=== PATIENT | female | born 1960 | race Caucasian/White ===

== ENCOUNTER → 2023-12-11 07:52 | Day surgery (SDC) | payer OTHER, SELFPAY ==
[2023-12-11 11:56] LABS: Glucose - Point of Care 194 mg/dl (70-99)
== END ==
LOC: GI 07:52
PROVIDERS: ATTENDING PHYSICIAN Internal Medicine Gastroenterology
DX: Z12.11 Encounter for screening for malignant neoplasm of colon (principal); D12.2 Benign neoplasm of ascending colon; D12.4 Benign neoplasm of descending colon; D12.5 Benign neoplasm of sigmoid colon
CPT/HCPCS: 45385; 88305; 82962

== ENCOUNTER → 2024-01-09 07:38 | Outpatient (REF) | payer OTHER, SELFPAY | LOC: DHCBC/DCA 07:38 | PROVIDERS: ATTENDING PHYSICIAN Internal Medicine; FAMILY PHYSICIAN Family Medicine | DX: E78.00 Pure hypercholesterolemia, unspecified (principal); E11.59 Type 2 diabetes mellitus with other circulatory complications; R07.9 Chest pain, unspecified; R06.09 Other forms of dyspnea | CPT/HCPCS: 78452; 93017; A9500; J2785 ==

== ENCOUNTER → 2024-01-25 09:15 | Outpatient (REF) | payer OTHER, SELFPAY | LOC: RCS 09:15 | PROVIDERS: ATTENDING PHYSICIAN Internal Medicine; FAMILY PHYSICIAN Family Medicine | DX: C50.511 Malignant neoplasm of lower-outer quadrant of right female breast (principal); E78.00 Pure hypercholesterolemia, unspecified; E11.59 Type 2 diabetes mellitus with other circulatory complications | CPT/HCPCS: 93306; 93356 ==

== ENCOUNTER 2024-01-29 07:15 | Day surgery (SDC) | payer OTHER, SELFPAY ==
[2024-01-26 10:24] VITALS: BMI 31.1
[2024-01-29 08:17] LABS: Glucose - Point of Care 190 mg/dl (70-99)
== END 2024-01-29 09:50 | disposition home or self-care (01) ==
LOC: CATH 07:15
PROVIDERS: ATTENDING PHYSICIAN Internal Medicine; FAMILY PHYSICIAN Family Medicine
DX: I08.1 Rheumatic disorders of both mitral and tricuspid valves (principal); R07.9 Chest pain, unspecified; R06.09 Other forms of dyspnea; I10 Essential (primary) hypertension; E78.5 Hyperlipidemia, unspecified; E11.9 Type 2 diabetes mellitus without complications; Z85.3 Personal history of malignant neoplasm of breast; F17.210 Nicotine dependence, cigarettes, uncomplicated; Z79.4 Long term (current) use of insulin; Z79.84 Long term (current) use of oral hypoglycemic drugs
CPT/HCPCS: 93312; 93320; 93325; 82962; 93005

== ENCOUNTER → 2024-03-04 08:29 | Outpatient (REF) | payer OTHER, SELFPAY | LOC: PAVMRI 08:29 | PROVIDERS: ATTENDING PHYSICIAN Internal Medicine; FAMILY PHYSICIAN Family Medicine | DX: I51.89 Other ill-defined heart diseases (principal); Z17.0 Estrogen receptor positive status [ER+]; C50.911 Malignant neoplasm of unspecified site of right female breast | CPT/HCPCS: 75561; 75565; A9585 ==

== ENCOUNTER 2024-03-25 06:49 | Day surgery (SDC) | payer OTHER, SELFPAY ==
[2024-03-25 07:44] LABS: Glucose - Point of Care 376 mg/dl (70-99)
[2024-03-25] MEDS: NOVOLOG vial 4 UNITS SC (08:00)
[2024-03-25 09:18] LABS: Glucose - Point of Care 313 mg/dl (70-99)
== END 2024-03-25 09:30 | disposition home or self-care (01) ==
LOC: CATH 06:49
PROVIDERS: ATTENDING PHYSICIAN Internal Medicine; FAMILY PHYSICIAN Family Medicine
DX: I08.1 Rheumatic disorders of both mitral and tricuspid valves (principal); I10 Essential (primary) hypertension; E78.00 Pure hypercholesterolemia, unspecified; E10.8 Type 1 diabetes mellitus with unspecified complications; Z85.3 Personal history of malignant neoplasm of breast; F17.210 Nicotine dependence, cigarettes, uncomplicated; Z79.84 Long term (current) use of oral hypoglycemic drugs; Z79.4 Long term (current) use of insulin
CPT/HCPCS: 93312; 93320; 93325; 82962

== ENCOUNTER → 2024-05-08 06:33 | Outpatient (REF) | payer OTHER, SELFPAY | LOC: WDC 06:33 | PROVIDERS: ATTENDING PHYSICIAN Internal Medicine Hematology & Oncology; FAMILY PHYSICIAN Family Medicine | DX: Z12.31 Encounter for screening mammogram for malignant neoplasm of breast (principal) | CPT/HCPCS: 77063; 77067; 93312; 93320; 93325 ==

== ENCOUNTER 2024-05-16 11:15 | Emergency (ER) | payer OTHER, SELFPAY ==
[2024-05-16 11:21] VITALS: BP 135/68
[2024-05-16 11:36] LABS: % Eosinophils 3.6 % (0-6); % Immature Granulocytes 0.3 % (0-0.5); % Lymphocytes 24.9 % (20.5-51.1); % Monocytes 9.3 % (1.7-9.3); % Neutrophils 60.9 % (42.2-75.2); Absolute Basophils 0.1 10^3/uL (0-0.2); Absolute Eosinophils 0.2 10^3/uL (0-0.7); Absolute Lymphocytes 1.7 10^3/uL (1.2-3.4); Absolute Monocytes 0.6 10^3/uL (0.1-0.6); Absolute Neutrophils 4.1 10^3/uL (1.4-6.5); Hematocrit 36.8 % (37.0-47.0); Hemoglobin 13.1 g/dL (12.0-16.0); Mean Corp Hgb Conc. 35.6 g/dL (33.0-37.0); Mean Corpuscular Hgb 33.5 pg (27.0-31.0); Mean Corpuscular Volume 94.1 fL (81.0-99.0); Mean Platelet Volume 9.3 fL (7.4-10.4); Nucleated Red Blood Cells % 0 %; Platelet Count 279 10^3/uL (130-400); Red Blood Cell Count 3.91 10^6/uL (4.20-5.40); Red Cell Dist. Width 15.5 % (11.5-14.5); White Blood Cell Count 6.8 10^3/uL (4.8-10.8)
[2024-05-16 11:49] LABS: ALT (SGPT) 20 U/L (0-35); AST (SGOT) 21 U/L (14-36); Albumin 4.1 g/dl (3.5-5.0); Alkaline Phosphatase 64 U/L (38-126); Blood Urea Nitrogen 16 mg/dl (7-17); Calcium 9.3 mg/dl (8.4-10.2); Carbon Dioxide 21 mmol/L (22-30); Chloride 106 mmol/L (98-107); Glucose 200 mg/dl (70-99); Potassium 3.9 mmol/L (3.5-5.1); Sodium 135 mmol/L (135-145); Total Bilirubin 0.5 mg/dl (0.2-1.3); Total Protein 6.6 g/dl (6.3-8.2); eGFR > 60.00
--- NOTE | 2024-05-16 11:59 | ED.GENMED ---
History of Present Illness
<Sara Hunt PA-C - Last Filed: 05/16/24 19:15>
General
Chief Complaint: Chest Pain
Source: patient
Exam Limitations: none
Time Seen by Provider: 05/16/24 11:59
Nursing documentation reviewed up to this point in time: agreed with
History of Present Illness
History of Present Illness:
63 y/o F with htn, hld, R breast CA, IDDM, lupus
h/o R atrial thrombus recently diagnosed on cardiac MRI after abnormal echo
here with chest pain in the center and upper back that she has felt constantly fo r2 days, radiates into both arms
exertion does not make it worse
slightly worse with deep breathing but no SOB
gave her a nitro this morning , he isn't sure why
it didn't help
pt has not had any leg swelling, syncope, fever, cough, vomiting,, abdominal pain, weakness
Past History
<John Richards, - Last Filed: >
Past History
ED Past Medical History: Cancer, Hypercholesterolemia, IDDM and Other
ED Past Surgical History: Gynecological (Partial hysterectomy) and Orthopedic (Cervical spine fusion ); Negative Cardiac
Social History
Tobacco: Smoker
Alcohol: Occasional
Drug: None
Personal:
Living: with family
Employment: Employed
Family History
Family History: Hypertension
Review of Systems
<Sara Hunt PA-C - Last Filed: 05/16/24 19:15>
Review of Systems
Allergies reviewed?: Yes
Phy Exam
<Sara Hunt PA-C - Last Filed: 05/16/24 19:15>
Physical Exam
Physical Exam:
GENERAL: Alert , in no apparent distress
EYE: pupils equal and reactive
NECK: Supple
ENT: o/p clr, mmm.
CARDIAC: Regular rate and rhythm .
right mastectomy
LUNGS: Clear breath sounds bilaterally, no acute respiratory distress, no wheezes/rales/rhonchi
ABDOMEN: Soft, without focal tenderness, no r/g, no cvat, normal bowel sounds
neg georges's
NEUROLOGICAL: Alert and oriented, no focal neuro deficits
SKIN: Warm and dry, skin intact.
MUSCULOSKELETAL: No edema, well perfused. neg ilir's sign
PSYCH: Normal and appropriate interaction.
Scores
<Sara Hunt PA-C - Last Filed: 05/16/24 19:15>
Heart Score for Chest Pain Patients
STEMI patient?: No
History: Moderately Suspicious
ECG: Normal
Age: >45 - <65 years
Risk Factors: >/= 3 Risk Factors or History of CAD
Troponin: </= Normal Limit
Heart Score for Chest Pain Patients: 4
Heart Score Risk: 20.3% MACE over next 6 weeks
Course
<Sara Hunt PA-C - Last Filed: 05/16/24 19:15>
Orders/Labs/Results
Orders:
Orders
05/16/24 11:17
EKG [Electrocardiogram (*1)] Urgent
Reason for Study: Chest Pain
05/16/24 11:18
EKG- Treatment ONCE
05/16/24 11:25
Cardiac Monitoring- Treatment ONCE
IV Insert/Care/Rem.- Treatment PRN
O2 Therapy [RESP] Urgent
Titrate/Wean O2 to maintain O2 sat greater than (%): 90
Special Instructions: Maintain sats >/=90%
Pulse Ox/spot Check [RESP] Urgent
Quantity: 1
Special Instructions: ON ROOM AIR
05/16/24 11:29
Complete Blood Count/With Diff Urgent
Comprehensive Metabolic Panel Urgent
Lipase Urgent
Comment: ADD
Troponin I Urgent
05/16/24 13:00
CT Chest/abd/pelvis Angio W/wo Urgent
Comment: R atrial thrombus on cardiac mri
Reason For Exam: chest, upper back pain radiating to arms
05/16/24 13:04
Acetaminophen [Tylenol] 650 mg PO NOW STA
05/16/24 13:11
Add On- LAB Urgent
Tests Added?: lipase
05/16/24 14:36
Electrocardiogram (*1) Urgent
Reason for Study: Chest Pain
EKG- Treatment ONCE
05/16/24 15:42
Troponin I Urgent
Abnormal Lab Results
05/16/24
11:29
RBC 3.91 L 10^6/uL
(4.20-5.40)
Hct 36.8 L %
(37.0-47.0)
MCH 33.5 H pg
(27.0-31.0)
RDW 15.5 H %
(11.5-14.5)
Carbon Dioxide 21 L mmol/L
(22-30)
Glucose 200 H mg/dl
(70-99)
05/16/24 11:29
05/16/24 11:29
Vital Signs
Initial and Last Documented VS:
Initial Vital Signs
Temp Pulse Resp BP Pulse Ox
98 F 85 18 135/68 96
05/16/24 11:21 05/16/24 11:21 05/16/24 11:21 05/16/24 11:21 05/16/24 11:21
Last Documented Vital Signs
Temp Pulse Resp BP Pulse Ox
98 F 73 21 132/63 96
05/16/24 11:21 05/16/24 16:00 05/16/24 16:00 05/16/24 13:25 05/16/24 16:00
<John Richards, DO - Last Filed: >
Orders/Labs/Results
Orders:
Orders
05/16/24 11:17
EKG [Electrocardiogram (*1)] Urgent
Reason for Study: Chest Pain
05/16/24 11:18
EKG- Treatment ONCE
05/16/24 11:25
Cardiac Monitoring- Treatment ONCE
IV Insert/Care/Rem.- Treatment PRN
O2 Therapy [RESP] Urgent
Titrate/Wean O2 to maintain O2 sat greater than (%): 90
Special Instructions: Maintain sats >/=90%
Pulse Ox/spot Check [RESP] Urgent
Quantity: 1
Special Instructions: ON ROOM AIR
05/16/24 11:29
Complete Blood Count/With Diff Urgent
Comprehensive Metabolic Panel Urgent
Lipase Urgent
Comment: ADD
Troponin I Urgent
05/16/24 13:00
CT Chest/abd/pelvis Angio W/wo Urgent
Comment: R atrial thrombus on cardiac mri
Reason For Exam: chest, upper back pain radiating to arms
05/16/24 13:04
Acetaminophen [Tylenol] 650 mg PO NOW STA
05/16/24 13:11
Add On- LAB Urgent
Tests Added?: lipase
05/16/24 14:36
Electrocardiogram (*1) Urgent
Reason for Study: Chest Pain
EKG- Treatment ONCE
05/16/24 15:42
Troponin I Urgent
Abnormal Lab Results
05/16/24
11:29
RBC 3.91 L 10^6/uL
(4.20-5.40)
Hct 36.8 L %
(37.0-47.0)
MCH 33.5 H pg
(27.0-31.0)
RDW 15.5 H %
(11.5-14.5)
Carbon Dioxide 21 L mmol/L
(22-30)
Glucose 200 H mg/dl
(70-99)
05/16/24 11:29
05/16/24 11:29
Vital Signs
Initial and Last Documented VS:
Initial Vital Signs
Temp Pulse Resp BP Pulse Ox
98 F 85 18 135/68 96
05/16/24 11:21 05/16/24 11:21 05/16/24 11:21 05/16/24 11:21 05/16/24 11:21
Last Documented Vital Signs
Temp Pulse Resp BP Pulse Ox
98 F 73 21 132/63 96
05/16/24 11:21 05/16/24 16:00 05/16/24 16:00 05/16/24 13:25 05/16/24 16:00
<Sara Hunt PA-C - Last Filed: 05/16/24 19:15>
MDM/Problems Addressed
MDM/Problems Addressed:
63 y/o F
h/o breast ca s/p mastectomy and chemo but d/c treatment
htn, hld, iddm
in january had abnormal echo, YUVAL showing a R atrial mass
she had cardiac MRI in february confirming this masslike lesion in the lateral and inferior wall of the R atrium which was favored to be a thrombus but could also be metastatic, though less likely;
she was empirically started on eliquis which she has been taking
2 days ago developed constant cp to back and down both arms; she has some pleuritic component, no cough, now eakness
unclear why it took her 2 days to come in; her vitals are normal, she appears comfortable and her exam is unremarkable; her ekg is normal and 1st trop neg; was pending CTA OF C/A/P
D/W DR. pedroza and dr. kirkland
they felt that since pt's lesion is stable, she is anticoagulated, and with 2 neg trops did not feel this was cardiac in nature
new finding of multiple pulm lesions concerning for mets
pt will call her oncologist for further w/u
already anticoagulated
d/c home
<Sara Hunt PA-C - Last Filed: 05/16/24 19:15>
*Critical Care Note
Total Time (30-74mins, 75-104mins- exclusive of procedures): Not Applicable
ED Attending Note
<John Richards DO - Last Filed: >
-
Portions of this chart may have been created with voice recognition software.� Occasional wrong word or��sound alike� substitutions may have occurred due to the inherent limitations of voice recognition software.
Discharge Plan
Departure
Patient Disposition: Home (Routine Discharge)
Date of Disposition: 05/16/24
Time of Disposition: 16:24
Patient with high blood pressure during this ER visit?: No
Condition: Fair
Covid-19: Not Applicable
Discharge Problem:
Chest pain, Multiple pulmonary nodules
Instructions: Pulmonary nodule, Chest Pain CBC Follow Up
Prescriptions:
No Action
methotrexate sodium 2.5 MG tablet
10 mg PO TUWE@1800
metformin 1,000 MG tablet
1,000 mg PO BID@0800,1700
folic acid 1 MG tablet
3 mg PO DAILY
insulin lispro [Humalog KwikPen Insulin] 100 UNIT/ML insulin pen
0 units SC MEALS
Patient Comments:
sliding scale
hydroxychloroquine 200 mg Tablet
400 mg PO BID
insulin glargine [Lantus Solostar U-100 Insulin] 100 unit/mL (3 mL) Insulin Pen
50 unit SC HS
sucralfate 1 gram Tablet
1 g PO TID
pantoprazole 40 mg Tablet,Delayed Release (Dr/Ec)
40 mg PO DAILY
pregabalin 100 mg Capsule
100 mg PO TID
mecobalamin (vitamin B12) [B12 Active] 1,000 mcg Tablet,Chewable
1,000 mcg PO DAILY
Referrals:
Abraham Ackerman MD [Family Provider] -
Arnel Dyer MD [Active] - Follow up in 5-7 days
Activity Restrictions/Additional Instructions:
Your CAT scan shows that you have multiple pulmonary nodules
You need to call Dr. Dyer, you will need more testing for this. Please remember to continue your Eliquis as prescribed, do not miss any doses of this.
Return for any worsening of your chest pain, passing out, vomiting, weakness or any concerns. Also follow-up with Dr. Kirkland.
Interventions
Interventions:
*Risk Screen - Suicide Last Done: 05/16/24 11:21
*General Assessment Last Done: 05/16/24 11:21
*Neglect/Abuse Screening Last Done: 05/16/24 11:21
*ED COVID-19 Vaccine History Last Done: 05/16/24 13:18
*Nursing Disposition Last Done: 05/16/24 16:40
ED- Cardiac Assessment Last Done: 05/16/24 13:18
Discharge Date and Time
Discharge Date/Time: 05/16/24 16:41
Print Language: SENEGALESE
[2024-05-16 12:02] LABS: Troponin I < 0.012 ng/ml
[2024-05-16] MEDS: TYLENOL 650 MG PO (13:20)
[2024-05-16 13:21] VITALS: BP 132/63
[2024-05-16 13:25] VITALS: BP 132/63
[2024-05-16 14:21] LABS: Lipase 128 U/L (23-300)
[2024-05-16 16:14] LABS: Troponin I < 0.012 ng/ml
== END 2024-05-16 16:41 | disposition home or self-care (01) ==
LOC: EMR 11:15
PROVIDERS: Emergency Medicine; Physician Assistant; EMERGENCY PHYSICIAN Emergency Medicine; FAMILY PHYSICIAN Family Medicine
DX: R91.8 Other nonspecific abnormal finding of lung field (principal); R07.9 Chest pain, unspecified; M79.602 Pain in left arm; M79.601 Pain in right arm; I10 Essential (primary) hypertension; E11.9 Type 2 diabetes mellitus without complications; E78.00 Pure hypercholesterolemia, unspecified; M32.9 Systemic lupus erythematosus, unspecified; I51.3 Intracardiac thrombosis, not elsewhere classified; F17.200 Nicotine dependence, unspecified, uncomplicated; Z79.4 Long term (current) use of insulin; Z85.3 Personal history of malignant neoplasm of breast; Z92.21 Personal history of antineoplastic chemotherapy; M43.22 Fusion of spine, cervical region; Z90.11 Acquired absence of right breast and nipple; Z88.5 Allergy status to narcotic agent; Z88.8 Allergy status to other drugs, medicaments and biological substances
CPT/HCPCS: 99285; 71275; 74174; 80053; 83690; 84484; 85025; 93005; Q9967

== ENCOUNTER → 2024-05-22 12:29 | Outpatient (REF) | payer OTHER, SELFPAY | LOC: HWRAD 12:29 | PROVIDERS: ATTENDING PHYSICIAN Family Medicine | DX: R11.10 Vomiting, unspecified (principal); R91.1 Solitary pulmonary nodule; C50.911 Malignant neoplasm of unspecified site of right female breast | CPT/HCPCS: 70470; Q9967 ==

== ENCOUNTER → 2024-06-03 07:56 | Outpatient (REF) | payer OTHER, SELFPAY | LOC: PET 07:56 | PROVIDERS: ATTENDING PHYSICIAN Family Medicine | DX: C50.511 Malignant neoplasm of lower-outer quadrant of right female breast (principal); R91.1 Solitary pulmonary nodule | CPT/HCPCS: 78815; A9552 ==

== ENCOUNTER → 2024-07-02 07:56 | Outpatient (REF) | payer OTHER, SELFPAY | LOC: HWRAD 07:56 | PROVIDERS: ATTENDING PHYSICIAN Internal Medicine Critical Care Medicine; FAMILY PHYSICIAN Family Medicine | DX: R91.8 Other nonspecific abnormal finding of lung field (principal) | CPT/HCPCS: 71250 ==

== ENCOUNTER 2024-07-10 06:13 | Day surgery (SDC) | payer OTHER, SELFPAY ==
[2024-07-02 07:53] LABS: Hematocrit 37.8 % (37.0-47.0); Hemoglobin 13.1 g/dL (12.0-16.0); Mean Corp Hgb Conc. 34.7 g/dL (33.0-37.0); Mean Corpuscular Hgb 33.2 pg (27.0-31.0); Mean Corpuscular Volume 95.9 fL (81.0-99.0); Mean Platelet Volume 9.7 fL (7.4-10.4); Platelet Count 299 10^3/uL (130-400); Red Blood Cell Count 3.94 10^6/uL (4.20-5.40); White Blood Cell Count 6.3 10^3/uL (4.8-10.8)
[2024-07-02 07:56] LABS: INR 1.08; PT 13.9 Sec (11.4-14.6)
[2024-07-02 07:57] LABS: APTT 44.3 Sec (23.4-35.0)
[2024-07-02 08:14] LABS: Blood Urea Nitrogen 20 mg/dl (7-17); Calcium 10.1 mg/dl (8.4-10.2); Carbon Dioxide 26 mmol/L (22-30); Chloride 100 mmol/L (98-107); Glucose 148 mg/dl (70-99); Potassium 4.3 mmol/L (3.5-5.1); Sodium 142 mmol/L (135-145); eGFR > 60.00
[2024-07-02 10:05] VITALS: BMI 28.1
--- NOTE | 2024-07-08 12:27 | PTCARENOTE ---
Patients 07/02 PTT 44.3- Emailed Cynthia Cohen
[2024-07-10] VITALS (7 sets, daily range): BP systolic 101–124; BP diastolic 58–72; BMI 28.1
[2024-07-10 09:12] LABS: Glucose - Point of Care 107 mg/dl (70-99)
[2024-07-10 11:55] LABS: Glucose - Point of Care 91 mg/dl (70-99)
[2024-07-10] MEDS: TESSALON PERLES 200 MG PO (12:32)
[2024-07-10] MEDS: ROBITUSSIN DM 10 ML PO (12:32)
== END 2024-07-10 13:44 | disposition home or self-care (01) ==
LOC: GI 06:13
PROVIDERS: ATTENDING PHYSICIAN Internal Medicine Critical Care Medicine; FAMILY PHYSICIAN Family Medicine; OTHER PHYSICIAN Internal Medicine; OTHER PHYSICIAN Internal Medicine Hematology & Oncology
DX: C34.31 Malignant neoplasm of lower lobe, right bronchus or lung (principal); R91.8 Other nonspecific abnormal finding of lung field; R05.3 Chronic cough; Z85.3 Personal history of malignant neoplasm of breast
CPT/HCPCS: 31629; 31623; 43238; 31627; 31628; 31624; 31654; 88172; 88173; 88305; 36415; 71045; 76000; 80048; 81459; 82962; 85027; 85610; 85730; 87070; 87102; 87116; 87205; 88112; 88333; 88334; 88341; 88342; 94640; C1887

== ENCOUNTER → 2024-08-06 06:46 | Outpatient (REF) | payer OTHER, SELFPAY ==
[2024-08-06] VITALS (8 sets, daily range): BP systolic 60–129; BP diastolic 57–73
[2024-08-06 07:32] LABS: Glucose - Point of Care 101 mg/dl (70-99)
[2024-08-06] MEDS: ANCEF 10 IV (08:19)
[2024-08-06 09:40] LABS: Glucose - Point of Care 88 mg/dl (70-99)
== END ==
LOC: RADI 06:46
PROVIDERS: ATTENDING PHYSICIAN Internal Medicine Hematology & Oncology; FAMILY PHYSICIAN Family Medicine
DX: C50.511 Malignant neoplasm of lower-outer quadrant of right female breast (principal)
CPT/HCPCS: 36561; 76937; 77001; 82962; 99152; 99153; C1788

== ENCOUNTER 2024-09-09 19:29 | Inpatient (IN) | payer OTHER, SELFPAY ==
[2024-09-09 16:00] VITALS: BP 135/68
--- NOTE | 2024-09-09 16:06 | ED.GENMED ---
ED Provider Triage
<Trevin Sawyer PA-C - Last Filed: 09/09/24 16:12>
-
Patient seen by provider in Triage?: Seen in Triage
Attestation: A medical screening examination has been initiated by a qualified medical provider. Based on the assessment performed at this time, it has been determined that an emergent medical condition may exist and the patient has been informed
that further medical evaluation and possible additional diagnostic testing may be needed.
HPI: 63-year-old female currently being treated for cancer over at [facility] presenting to the ER for evaluation of chest pain, muscle spasms that extend from her feet all the way up through her head and generally feeling unwell. Last chemo
and reports she also got an injection of what she believed to be heparin this past Monday. Patient unable to tell me as to why they gave her heparin however. No fevers. Chronically ill-appearing but in no acute distress. Labs ordered. Patient
otherwise stable.
GENERAL: Alert , in no apparent distress
EYE: No visual abnormalities.
NECK: Trachea midline
ENT: No visible abnormalities.
LUNGS: No acute respiratory distress
NEUROLOGICAL: Alert and oriented
SKIN: Skin intact. No visible changes.
MUSCULOSKELETAL: Moving extremities normally
PSYCH: Normal and appropriate interaction.
This is a medical evaluation conducted in person to initiate diagnostic evaluation and provide initial therapeutics. Please see further documentation by the treating clinician.
History of Present Illness
<Trevin Sawyer PA-C - Last Filed: 09/09/24 16:12>
General
Chief Complaint: Chest Pain
Time Seen by Provider: 09/09/24 17:17
<Olesya Alcantara MD - Last Filed: 09/09/24 19:43>
General
Source: patient
Exam Limitations: none
Nursing documentation reviewed up to this point in time: agreed with
History of Present Illness
History of Present Illness:
The patient is a pleasant 63-year-old female with a past medical history of recurrent breast cancer with mets to the lungs. Patient arrives with complaints of diffuse muscle cramping which she states is located in her bilateral arms, legs, back,
and in her chest. Patient denies cough and fever. She reports she recently had chemotherapy 5 days ago. She reports that about 3 days ago she had a large amount of watery diarrhea for 2 days straight.
Past History
<Trevin Sawyer PA-C - Last Filed: 09/09/24 16:12>
Past History
ED Past Medical History: Cancer, Hypercholesterolemia, IDDM and Other
ED Past Surgical History: Gynecological (Partial hysterectomy) and Orthopedic (Cervical spine fusion ); Negative Cardiac
Social History
Tobacco: Smoker
Alcohol: Occasional
Drug: None
Personal:
Living: with family
Employment: Employed
Family History
Family History: Hypertension
Review of Systems
<Olesya Alcantara MD - Last Filed: 09/09/24 19:43>
Review of Systems
Allergies reviewed?: Yes
All Other Systems: ROS reviewed and negative except as documented in HPI and ROS
Constitutional: Reports fatigue
EENT: Reports no symptoms
Respiratory: Reports no symptoms
Cardiac: Reports chest pain
ABD/GI: Reports no symptoms
: Reports no symptoms
Musculoskeletal: Reports muscle pain
Skin: Reports no symptoms
Neurological: Reports no symptoms
Endocrine: Reports no symptoms
Hematologic/Lymphatic: Reports no symptoms
Psychiatric: Reports no symptoms
Phy Exam
<Olesya Alcantara MD - Last Filed: 09/09/24 19:43>
Physical Exam
Physical Exam:
Physical Exam
General: no apparent distress, not acutely ill
Neck: supple. no meningeal signs. normal psoterior pharynx
Heart: s1/s2 regular rate and rhythm, no murmur. equal radial pulses.
Lungs: no acute respiratory distress. clear bilaterally
Abdomen: normal bowel sounds. not tender. no CVAT
Neuro: alert and oriented. no focal neurological deficits
Skin: no rash
Psychiatric: well kept. interactive and cooperative
Extremities: no edema. no calf tenderness. negative homans. good distal pulses
Scores
<Olesya Alcantara MD - Last Filed: 09/09/24 19:43>
Heart Score for Chest Pain Patients
STEMI patient?: Not applicable
Course
<Trevin Sawyer PA-C - Last Filed: 09/09/24 16:12>
Orders/Labs/Results
Orders:
Orders
09/09/24 16:00
Electrocardiogram (*1) Urgent
Reason for Study: Chest Pain
Electrocardiogram (*1) Urgent
Reason for Study: Chest Pain
EKG- Treatment ONCE
EKG- Treatment ONCE
09/09/24 16:13
CPK [Creatine Phosphokinase] Urgent
Complete Blood Count/With Diff Urgent
Comprehensive Metabolic Panel Urgent
Magnesium Urgent
Troponin I Urgent
09/09/24 17:08
Magnesium Sulfate 2 Gram/50 ml [Magnesium Sulfate] 2 gram in 50 ml IV NOW
09/09/24 17:09
Magnesium Sulfate 2 Gram/50 ml [Magnesium Sulfate] 2 gram in 50 ml .ROUTE .STK-MED
09/09/24 18:15
Magnesium Sulfate 2 Gram/50 ml [Magnesium Sulfate] 2 gram in 50 ml IV NOW
09/09/24 18:16
Potassium Chloride [KCl] 40 meq PO NOW STA
09/09/24 18:43
Admit/Transfer Patient As Directed
Co-Sign Provider:
Level of Care: Inpatient admission
Assign to:: Telemetry
Physician / Group: sherman
Diagnosis: hypomagnesemia
Reason for Telemetry: Other
Other Reason for Telemetry: electroylte imbalance
Date to Stop Telemetry: 09/11/24
Time to Stop Telemetry: 11:00
Reason for Hospitalization: hypomagnesemia
Expected length of stay greater than two midnights?: Yes
ELOS- Estimated Length of Stay in days: 3
I certify the patient meets the requirements for IP care: Yes
PRN Pain Medication Management As Directed
May give lesser potent ordered pain med per pt: Yes
preference::
Protocol:: Medication orders for pain may be administered in a
manner that supports deferring to patient preference
when the pt is:
- Requesting an ordered lesser potent pain medication.
Least to most potent pain medications are defined
as: acetaminophen < NSAID < tramadol < opioids
(morphine, oxycodone, hydromorphone).
- Requesting a lesser dose of the same medication IF
ORDERED.
- Requesting a less intrusive route of administration
if both routes are prescribed by the provider (PO <
IV).
09/09/24 18:45
Code Status As Directed
Resuscitation Status: Full Code
09/11/24 11:00
DC Protocol for Telemetry ONCE
Abnormal Lab Results
09/09/24
16:13
RBC 3.21 L 10^6/uL
(4.20-5.40)
Hgb 11.1 L g/dL
(12.0-16.0)
Hct 32.0 L %
(37.0-47.0)
MCV 99.7 H fL
(81.0-99.0)
MCH 34.6 H pg
(27.0-31.0)
RDW 15.8 H %
(11.5-14.5)
Abs Immat Gran (auto) 1.1 H 10^3/uL
(0-0.05)
Absolute Monos (auto) 1.5 H 10^3/uL
(0.1-0.6)
Immature Gran % 10.6 H %
(0-0.5)
Lymphocytes % 16.0 L %
(20.5-51.1)
Monocytes % 15.0 H %
(1.7-9.3)
Sodium 133 L mmol/L
(135-145)
Chloride 96 L mmol/L
(98-107)
Glucose 363 H mg/dl
(70-99)
Magnesium 0.8 L* mg/dl
(1.6-2.3)
09/09/24 16:13
09/09/24 16:13
Vital Signs
Initial and Last Documented VS:
Initial Vital Signs
Temp Pulse Resp BP Pulse Ox
98.5 F 111 19 135/68 95
09/09/24 16:00 09/09/24 16:00 09/09/24 16:00 09/09/24 16:00 09/09/24 16:00
Last Documented Vital Signs
Temp Pulse Resp BP Pulse Ox
98.5 F 94 23 137/56 92
09/09/24 16:00 09/09/24 19:15 09/09/24 19:15 09/09/24 19:00 09/09/24 19:15
<Olesya Alcantara MD - Last Filed: 09/09/24 19:43>
Orders/Labs/Results
Orders:
Orders
09/09/24 16:00
Electrocardiogram (*1) Urgent
Reason for Study: Chest Pain
Electrocardiogram (*1) Urgent
Reason for Study: Chest Pain
EKG- Treatment ONCE
EKG- Treatment ONCE
09/09/24 16:13
CPK [Creatine Phosphokinase] Urgent
Complete Blood Count/With Diff Urgent
Comprehensive Metabolic Panel Urgent
Magnesium Urgent
Troponin I Urgent
09/09/24 17:08
Magnesium Sulfate 2 Gram/50 ml [Magnesium Sulfate] 2 gram in 50 ml IV NOW
09/09/24 17:09
Magnesium Sulfate 2 Gram/50 ml [Magnesium Sulfate] 2 gram in 50 ml .ROUTE .STK-MED
09/09/24 18:15
Magnesium Sulfate 2 Gram/50 ml [Magnesium Sulfate] 2 gram in 50 ml IV NOW
09/09/24 18:16
Potassium Chloride [KCl] 40 meq PO NOW STA
09/09/24 18:43
Admit/Transfer Patient As Directed
Co-Sign Provider:
Level of Care: Inpatient admission
Assign to:: Telemetry
Physician / Group: sherman
Diagnosis: hypomagnesemia
Reason for Telemetry: Other
Other Reason for Telemetry: electroylte imbalance
Date to Stop Telemetry: 09/11/24
Time to Stop Telemetry: 11:00
Reason for Hospitalization: hypomagnesemia
Expected length of stay greater than two midnights?: Yes
ELOS- Estimated Length of Stay in days: 3
I certify the patient meets the requirements for IP care: Yes
PRN Pain Medication Management As Directed
May give lesser potent ordered pain med per pt: Yes
preference::
Protocol:: Medication orders for pain may be administered in a
manner that supports deferring to patient preference
when the pt is:
- Requesting an ordered lesser potent pain medication.
Least to most potent pain medications are defined
as: acetaminophen < NSAID < tramadol < opioids
(morphine, oxycodone, hydromorphone).
- Requesting a lesser dose of the same medication IF
ORDERED.
- Requesting a less intrusive route of administration
if both routes are prescribed by the provider (PO <
IV).
09/09/24 18:45
Code Status As Directed
Resuscitation Status: Full Code
09/11/24 11:00
DC Protocol for Telemetry ONCE
Abnormal Lab Results
09/09/24
16:13
RBC 3.21 L 10^6/uL
(4.20-5.40)
Hgb 11.1 L g/dL
(12.0-16.0)
Hct 32.0 L %
(37.0-47.0)
MCV 99.7 H fL
(81.0-99.0)
MCH 34.6 H pg
(27.0-31.0)
RDW 15.8 H %
(11.5-14.5)
Abs Immat Gran (auto) 1.1 H 10^3/uL
(0-0.05)
Absolute Monos (auto) 1.5 H 10^3/uL
(0.1-0.6)
Immature Gran % 10.6 H %
(0-0.5)
Lymphocytes % 16.0 L %
(20.5-51.1)
Monocytes % 15.0 H %
(1.7-9.3)
Sodium 133 L mmol/L
(135-145)
Chloride 96 L mmol/L
(98-107)
Glucose 363 H mg/dl
(70-99)
Magnesium 0.8 L* mg/dl
(1.6-2.3)
09/09/24 16:13
09/09/24 16:13
Vital Signs
Initial and Last Documented VS:
Initial Vital Signs
Temp Pulse Resp BP Pulse Ox
98.5 F 111 19 135/68 95
09/09/24 16:00 09/09/24 16:00 09/09/24 16:00 09/09/24 16:00 09/09/24 16:00
Last Documented Vital Signs
Temp Pulse Resp BP Pulse Ox
98.5 F 94 23 137/56 92
09/09/24 16:00 09/09/24 19:15 09/09/24 19:15 09/09/24 19:00 09/09/24 19:15
<Olesya Alcantara MD - Last Filed: 09/09/24 19:43>
MDM/Problems Addressed
Differential Diagnosis Includes:
Symptomatic low magnesium, acute renal failure, PE, acute coronary syndrome
MDM/Problems Addressed:
Patient presents with acute muscle spasming and chest pain
Chronic conditions affecting care:
Cancer and chemotherapy can cause diarrhea and electrolyte abnormalities
<Olesya Alcantara MD - Last Filed: 09/09/24 19:43>
*Pulse Oximetry
Patient hypoxic: no
*EKG
Interpreted by ED Provider?: Yes
Interpretation: abnormal
Comparison EKG: no changes
Rate: normal
Rhythm: sinus
Coleman: left axis deviation
Interval: normal interval
QRS Pattern: normal QRS
Ischemia: non-specific ST changes
*Environmental Protection Geologist Interpretation
Rate: normal
Interpretation: normal
Rhythm: sinus
*Critical Care Note
Total Time (30-74mins, 75-104mins- exclusive of procedures): Not Applicable
Data Reviewed
Review of Other/Old Records Reveals: Progress Notes ([facility] progress note and H&P reviewed from 2023 which explained the patient has recurrent breast cancer with mets to the lung)
Source: patient and spouse
<Olesya Alcantara MD - Last Filed: 09/09/24 19:43>
Patient Management
Social determinants of health affecting care: Living situation and Strong social support
Discussion with other providers: Hospitalist and Other (Case discussed with nephrology, Dr. Parker who recommended a total of 4 mg of magnesium sulfate)
Escalation/DeEscalation of care consider admission/obs:
Patient will be admitted for symptomatic low magnesium
<Olesya Alcantara MD - Last Filed: 09/09/24 19:43>
Update Note
Update Note:
Patient appears stable and well. EKG appears nonischemic. Troponin is normal. Patient denies cough and fever. Clinically patient does not seem to have pneumonia or acute coronary syndrome
ED Attending Note
<Trevin Sawyer PA-C - Last Filed: 09/09/24 16:12>
-
Portions of this chart may have been created with voice recognition software.� Occasional wrong word or��sound alike� substitutions may have occurred due to the inherent limitations of voice recognition software.
Discharge Plan
Departure
Patient Disposition: Admit
Date of Disposition: 09/09/24
Time of Disposition: 18:14
Admit to: Telemetry
Presentation/result/management discussed w/ accepting MD/DO: Hospitalist
Patient with high blood pressure during this ER visit?: Yes
Condition: Fair
Covid-19: Not Applicable
Discharge Problem:
acute hypomagnesemia
Interventions
Interventions:
*Risk Screen - Suicide Last Done: 09/09/24 16:03
*Neglect/Abuse Screening Last Done: 09/09/24 16:03
ED- Fall Risk Assessment Last Done: 09/09/24 18:02
*ED COVID-19 Vaccine History Last Done: 09/09/24 16:03
ED- Cardiac Assessment Last Done: 09/09/24 18:02
[2024-09-09 16:40] LABS: Hemoglobin 11.1 g/dL (12.0-16.0); Mean Corp Hgb Conc. 34.7 g/dL (33.0-37.0); Mean Corpuscular Hgb 34.6 pg (27.0-31.0); Mean Corpuscular Volume 99.7 fL (81.0-99.0); Mean Platelet Volume 10.1 fL (7.4-10.4); Platelet Count 226 10^3/uL (130-400); Red Blood Cell Count 3.21 10^6/uL (4.20-5.40); Red Cell Dist. Width 15.8 % (11.5-14.5); White Blood Cell Count 10.1 10^3/uL (4.8-10.8)
[2024-09-09 16:48] LABS: ALT (SGPT) 26 U/L (0-35); AST (SGOT) 24 U/L (14-36); Albumin 4.1 g/dl (3.5-5.0); Alkaline Phosphatase 60 U/L (38-126); Blood Urea Nitrogen 8 mg/dl (7-17); Calcium 8.4 mg/dl (8.4-10.2); Carbon Dioxide 22 mmol/L (22-30); Chloride 96 mmol/L (98-107); Glucose 363 mg/dl (70-99); Magnesium 0.8 mg/dl (1.6-2.3); Potassium 3.7 mmol/L (3.5-5.1); Sodium 133 mmol/L (135-145); Total Bilirubin 0.7 mg/dl (0.2-1.3); Total Protein 6.5 g/dl (6.3-8.2); eGFR > 60.00
[2024-09-09 16:51] LABS: Troponin I < 0.012 ng/ml
[2024-09-09 16:57] LABS: Creatine Phosphokinase 124 U/L (30-135)
[2024-09-09] MEDS: MAGNESIUM SULFATE 50 IV ×2 (17:10→18:26)
[2024-09-09 17:13] LABS: % Basophils 1.7 % (0-2); % Eosinophils 0.9 % (0-6); % Immature Granulocytes 10.6 % (0-0.5); % Neutrophils 55.8 % (42.2-75.2); Absolute Basophils 0.2 10^3/uL (0-0.2); Absolute Eosinophils 0.1 10^3/uL (0-0.7); Absolute Immature Granulocytes 1.1 10^3/uL (0-0.05); Absolute Lymphocytes 1.6 10^3/uL (1.2-3.4); Absolute Monocytes 1.5 10^3/uL (0.1-0.6); Absolute Neutrophils 5.6 10^3/uL (1.4-6.5); Nucleated Red Blood Cells % 1.1 %
--- NOTE | 2024-09-09 17:20 | ED.GENMED ---
History of Present Illness
General
Chief Complaint: Chest Pain
Source: patient
Exam Limitations: none
Time Seen by Provider: 09/09/24 17:17
Nursing documentation reviewed up to this point in time: agreed with
History of Present Illness
History of Present Illness:
See note from same visit
Past History
Past History
ED Past Medical History: Cancer, Hypercholesterolemia, IDDM and Other
ED Past Surgical History: Gynecological (Partial hysterectomy) and Orthopedic (Cervical spine fusion ); Negative Cardiac
Social History
Tobacco: Smoker
Alcohol: Occasional
Drug: None
Personal:
Living: with family
Employment: Employed
Family History
Family History: Hypertension
Phy Exam
Physical Exam
Physical Exam:
See note from same visit
Scores
Heart Score for Chest Pain Patients
STEMI patient?: Not applicable
Course
Orders/Labs/Results
Orders:
Orders
09/09/24 16:00
Electrocardiogram (*1) Urgent
Reason for Study: Chest Pain
Electrocardiogram (*1) Urgent
Reason for Study: Chest Pain
EKG- Treatment ONCE
EKG- Treatment ONCE
09/09/24 16:13
CPK [Creatine Phosphokinase] Urgent
Complete Blood Count/With Diff Urgent
Comprehensive Metabolic Panel Urgent
Magnesium Urgent
Troponin I Urgent
09/09/24 17:08
Magnesium Sulfate 2 Gram/50 ml [Magnesium Sulfate] 2 gram in 50 ml IV NOW
09/09/24 17:09
Magnesium Sulfate 2 Gram/50 ml [Magnesium Sulfate] 2 gram in 50 ml .ROUTE .STK-MED
09/09/24 18:15
Magnesium Sulfate 2 Gram/50 ml [Magnesium Sulfate] 2 gram in 50 ml IV NOW
09/09/24 18:16
Potassium Chloride [KCl] 40 meq PO NOW STA
09/09/24 18:43
Admit/Transfer Patient As Directed
Co-Sign Provider:
Level of Care: Inpatient admission
Assign to:: Telemetry
Physician / Group: sherman
Diagnosis: hypomagnesemia
Reason for Telemetry: Other
Other Reason for Telemetry: electroylte imbalance
Date to Stop Telemetry: 09/11/24
Time to Stop Telemetry: 11:00
Reason for Hospitalization: hypomagnesemia
Expected length of stay greater than two midnights?: Yes
ELOS- Estimated Length of Stay in days: 3
I certify the patient meets the requirements for IP care: Yes
PRN Pain Medication Management As Directed
May give lesser potent ordered pain med per pt: Yes
preference::
Protocol:: Medication orders for pain may be administered in a
manner that supports deferring to patient preference
when the pt is:
- Requesting an ordered lesser potent pain medication.
Least to most potent pain medications are defined
as: acetaminophen < NSAID < tramadol < opioids
(morphine, oxycodone, hydromorphone).
- Requesting a lesser dose of the same medication IF
ORDERED.
- Requesting a less intrusive route of administration
if both routes are prescribed by the provider (PO <
IV).
09/09/24 18:45
Code Status As Directed
Resuscitation Status: Full Code
09/11/24 11:00
DC Protocol for Telemetry ONCE
Abnormal Lab Results
09/09/24
16:13
RBC 3.21 L 10^6/uL
(4.20-5.40)
Hgb 11.1 L g/dL
(12.0-16.0)
Hct 32.0 L %
(37.0-47.0)
MCV 99.7 H fL
(81.0-99.0)
MCH 34.6 H pg
(27.0-31.0)
RDW 15.8 H %
(11.5-14.5)
Abs Immat Gran (auto) 1.1 H 10^3/uL
(0-0.05)
Absolute Monos (auto) 1.5 H 10^3/uL
(0.1-0.6)
Immature Gran % 10.6 H %
(0-0.5)
Lymphocytes % 16.0 L %
(20.5-51.1)
Monocytes % 15.0 H %
(1.7-9.3)
Sodium 133 L mmol/L
(135-145)
Chloride 96 L mmol/L
(98-107)
Glucose 363 H mg/dl
(70-99)
Magnesium 0.8 L* mg/dl
(1.6-2.3)
09/09/24 16:13
09/09/24 16:13
Vital Signs
Initial and Last Documented VS:
Initial Vital Signs
Temp Pulse Resp BP Pulse Ox
98.5 F 111 19 135/68 95
09/09/24 16:00 09/09/24 16:00 09/09/24 16:00 09/09/24 16:00 09/09/24 16:00
Last Documented Vital Signs
Temp Pulse Resp BP Pulse Ox
98.5 F 94 23 137/56 92
09/09/24 16:00 09/09/24 19:15 09/09/24 19:15 09/09/24 19:00 09/09/24 19:15
*Pulse Oximetry
Patient hypoxic: no
*EKG
Interpreted by ED Provider?: Yes
Interpretation: abnormal
Comparison EKG: no changes
Rate: normal
Rhythm: sinus
Blairs: left axis deviation
Interval: normal interval
QRS Pattern: normal QRS
Ischemia: non-specific ST changes
*Search Engineer Interpretation
Rate: normal
Interpretation: normal
Rhythm: sinus
*Critical Care Note
Total Time (30-74mins, 75-104mins- exclusive of procedures): Not Applicable
Data Reviewed
Review of Other/Old Records Reveals: Labs
Source: patient and spouse
Patient Management
Discussion with other providers: Hospitalist and Other (Case discussed with nephrology, Dr. Parker who recommended a total of 4 g of IV magnesium and admit for symptomatic hypomagnesemia)
ED Attending Note
-
Portions of this chart may have been created with voice recognition software.� Occasional wrong word or��sound alike� substitutions may have occurred due to the inherent limitations of voice recognition software.
Discharge Plan
Departure
Patient Disposition: Admit
Date of Disposition: 09/09/24
Time of Disposition: 18:14
Admit to: Telemetry
Presentation/result/management discussed w/ accepting MD/DO: Hospitalist
Patient with high blood pressure during this ER visit?: Yes
Condition: Fair
Covid-19: Not Applicable
Discharge Problem:
acute hypomagnesemia
Interventions
Interventions:
*Risk Screen - Suicide Last Done: 09/09/24 16:03
*Neglect/Abuse Screening Last Done: 09/09/24 16:03
ED- Fall Risk Assessment Last Done: 09/09/24 18:02
*ED COVID-19 Vaccine History Last Done: 09/09/24 16:03
ED- Cardiac Assessment Last Done: 09/09/24 18:02
[2024-09-09 18:00] VITALS: BP 126/55
--- NOTE | 2024-09-09 18:19 | HPS.HSE ---
Family Physician
-
Family Physician: Abraham Ackerman
Chief Complaint
-
Muscle cramps and spasms
History of Present Illness
63-year-old with past medical history for hyperlipidemia, type 2 diabetes, right breast cancer, rheumatoid arthritis, lupus presented to us with generalized muscle cramps and muscle spasms since yesterday. Patient took Tylenol with no relief in her
symptoms. Patient stated, she had couple episodes of diarrhea 2 days ago. Patient denied any abdominal pain, nausea, vomiting. Patient denied any headache, dizziness, syncopal episode. Patient stated chronic chest pain. Denied dysuria hematuria.
Upon arrival noted to have a magnesium of 0.8. Patient supplemented with 4 g of magnesium/admitting for further management
Medical History
Past Medical History
Past Medical History: Reports Other
Additional Past Medical History:
Type 2 diabetes
Hyperlipidemia
Breast cancer
Lupus
Right rheumatoid arthritis
Hypertension
GERD
Past Surgical History: Reports Other
Additional Past Surgical History:
Right breast cancer status postmastectomy
Right breast lumpectomy
Social History
Tobacco: Smoker (Half a pack a day)
Alcohol: None
Drug: None
Personal:
Living: With Family
Family History
Family History: Not pertinent
Allergies / Home Medications
Allergies reflects when Allergies were last updated in [facility].
Home Medications with original date entered in [facility]
Allergy/Medication List:
Allergies
Allergy/AdvReac Type Severity Reaction Status Date / Time
adhesive Allergy Rash Verified 09/09/24 16:03
codeine Allergy Nausea / Verified 09/09/24 16:03
Vomiting
simvastatin Allergy MYALGIA Verified 09/09/24 16:03
Hkijkth-TOU-ZcR Reductase Allergy MYALGIA Verified 09/09/24 16:03
Inhibitor
[Xgtodea-Lyv-Sax Reductase
Inhibitor]
Home Medications
folic acid 1 mg tablet 3 mg PO DAILY Supplement 07/27/20
metformin 1,000 mg tablet 1,000 mg PO BID@0800,1700 Diabetes 07/27/20
methotrexate sodium 2.5 mg tablet 10 mg PO TUWE@1800 arthritis 07/27/20
hydroxychloroquine 200 mg tablet 400 mg PO DAILY LUPUS 06/29/22
insulin glargine 100 unit/mL (3 mL) subcutaneous pen (Lantus Solostar U-100 Insulin) 50 unit SC HS Diabetes 06/29/22
pantoprazole 40 mg tablet,delayed release 40 mg PO DAILY 01/29/24
pregabalin 100 mg capsule 100 mg PO TID 01/29/24
apixaban 5 mg tablet (Eliquis) 5 mg PO BID 07/09/24
ezetimibe 10 mg tablet 10 mg PO DAILY 07/09/24
ondansetron HCl 8 mg tablet 8 mg PO Q8HPRN PRN Nausea 07/09/24
docusate sodium 100 mg capsule (Colace) 100 mg PO DAILY PRN constipation 08/05/24
lidocaine-prilocaine 2.5 %-2.5 % topical cream 1 applic topical DAILYPRN PRN port access 08/05/24
insulin lispro 100 unit/mL subcutaneous pen (Humalog KwikPen (U-100) Insulin) 1 sliding scale dose SC AC 09/05/24
magnesium oxide 800 mg PO DAILY 09/09/24
prochlorperazine maleate 10 mg tablet 10 mg PO BIDPRN PRN nausea 09/09/24
Review of Systems
-
Constitutional: Reports No Symptoms
EENT: Reports No Symptoms
Respiratory: Reports No Symptoms
Cardiac: Reports No Symptoms
Abdomen/GI: Reports No Symptoms
: Reports No Symptoms
Musculoskeletal: Reports Muscle Pain and Other (Generalized muscle pain and cramps)
Skin: Reports No Symptoms
Neurological: Reports No Symptoms
Endocrine: Reports No Symptoms
Hematologic/Lymphatic: Reports No Symptoms
Psych: Reports No Symptoms
Physical Exam
Vital Signs
Vital Signs
Temp Pulse Resp BP Pulse Ox
98.5 F 89 15 135/68 92
09/09/24 16:00 09/09/24 18:00 09/09/24 18:00 09/09/24 16:00 09/09/24 18:00
Physical Exam
General: Well Developed, Well Nourished and No Apparent Distress
HEENT: NormoCephalic, Moist mucous membranes and Atraumatic
Respiratory: Clear
Cardiac: S1/S2 and Regular Rhythm; No Murmur or Rub
GI: Soft, Non Tender, Non Distended and Normal Bowel Sounds; No Organomegaly
Rectal: Deferred by Provider
Musculoskeletal: No Clubbing, No Cyanosis and No Edema
Skin: No Rash
Neuro: AO x 3 and Nonfocal/grossly intact
Psych: Calm
Laboratory Results
-
09/09/24 16:13
09/09/24 16:13
Laboratory Results
Total Bilirubin 0.7 mg/dl (0.2-1.3) 09/09/24 16:13
AST 24 U/L (14-36) 09/09/24 16:13
ALT 26 U/L (0-35) 09/09/24 16:13
Alkaline Phosphatase 60 U/L (38-126) 09/09/24 16:13
Troponin I < 0.012 ng/ml 09/09/24 16:13
Data Reviewed
-
Lab Data: Labs Reviewed by me
Impression/Plan
-
# Severe muscle cramping bilateral lower extremities and upper extremities likely from hypomagnesemia likely from chemo
-4 g of magnesium in ER
-Monitor mag level in the morning
# History of metastatic breast cancer
-At present on chemo
-Last chemo was on , next due in 2 weeks
-Follows Dr. Dyer as an outpatient
#diarrhea
-resolved
# Anemia likely from chronic disease
-Hemoglobin stable at 11.1
-No active bleeding
-Continue to monitor
# Pseudohyponatremia with elevated blood glucose
-Corrected sodium is 139
# Type 2 diabetes with hyperglycemia
-Blood sugar 363
-Continue with Lantus and sliding scale
-Metformin continued
# GERD
- pantoprazole continued
-
# History of PE
-On Eliquis
# Hyperlipidemia
-On Zetia
# RA and SLE
c/w FANCY STITCHER methotrexate and hydroxychloroquine
DVT PPX - Lovenox SQ
Full code
[2024-09-09] MEDS: KCL 40 MEQ PO (18:26)
[2024-09-09 18:35] VITALS: BP 143/56
[2024-09-09 19:00] VITALS: BP 137/56
--- NOTE | 2024-09-09 19:51 | W.PN.UPDATE ---
Update Note
Progress Note Update
This is an addendum to the H&P written by Delphine Tran on 09/09/2024. Patient seen and examined independently with ANNEALING FURNACE TENDER.
63-year-old female past medical for breast cancer on chemotherapy, lupus, diabetes, prior PE on Eliquis, hypertension, herniated disc, hyperlipidemia, here for lower extremity muscle cramping secondary to severe hypomagnesemia secondary
chemotherapy. She did have some diarrhea few days ago this has resolved. She has had hypomagnesemia from chemotherapy previously.
She complains of some chest wall pain which she intermittently has and is not new.
4 gram IV magnesium repletion recommended by nephrology..
[2024-09-09 20:59] VITALS: BP 131/59; BMI 27.4
[2024-09-09 21:32] LABS: Glucose - Point of Care 344 mg/dl (70-99)
[2024-09-09] MEDS: LYRICA 100 MG PO (21:46)
[2024-09-09] MEDS: ELIQUIS 5 MG PO (21:46)
[2024-09-09] MEDS: LANTUS 0.5 UNITS SC (22:02)
[2024-09-09] MEDS: TYLENOL 650 MG PO (22:03)
[2024-09-09 23:55] VITALS: BP 121/57
[2024-09-10 02:58] VITALS: BP 127/62
[2024-09-10] MEDS: TYLENOL 650 MG PO (03:00)
[2024-09-10 06:00] VITALS: BMI 27.4
--- NOTE | 2024-09-10 06:37 | PTCARENOTE ---
Patient arrived on unit @2100 via stretcher from ED, ambulate to bed with standby assist. Patient AAOx3, denies any pain or discomfort, no c/o dizziness. Med rec completed, skin assessment completed, oriented to unit, call taylor within reach.
[2024-09-10 06:59] LABS: Hematocrit 30.8 % (37.0-47.0); Hemoglobin 10.9 g/dL (12.0-16.0); Mean Corp Hgb Conc. 35.4 g/dL (33.0-37.0); Mean Platelet Volume 10.3 fL (7.4-10.4); Platelet Count 224 10^3/uL (130-400); Red Blood Cell Count 3.11 10^6/uL (4.20-5.40); White Blood Cell Count 16.6 10^3/uL (4.8-10.8)
[2024-09-10 07:16] LABS: Blood Urea Nitrogen 6 mg/dl (7-17); Calcium 8.5 mg/dl (8.4-10.2); Carbon Dioxide 25 mmol/L (22-30); Chloride 98 mmol/L (98-107); Estimated Creatinine Clearance 82 ml/min; Glucose 308 mg/dl (70-99); Magnesium 1.6 mg/dl (1.6-2.3); Potassium 3.7 mmol/L (3.5-5.1); Sodium 133 mmol/L (135-145); eGFR > 60.00
[2024-09-10 07:30] VITALS: BP 113/61
[2024-09-10 07:45] LABS: Glucose - Point of Care 349 mg/dl (70-99)
[2024-09-10] MEDS: MAG-TAB SR 168 MG PO (08:08)
[2024-09-10] MEDS: ELIQUIS 5 MG PO ×2 (08:08→19:59)
[2024-09-10] MEDS: PROTONIX 40 MG PO (08:08)
[2024-09-10] MEDS: FOLVITE 3 MG PO (08:09)
[2024-09-10] MEDS: GLUCOPHAGE 1000 MG PO ×2 (08:09→17:30)
[2024-09-10] MEDS: LYRICA 100 MG PO ×3 (08:09→23:00)
[2024-09-10] MEDS: ZETIA 10 MG PO (08:09)
[2024-09-10] MEDS: NOVOLOG FLEXPEN-MODERATE RESISTANCE 7 UNITS SC (08:14)
[2024-09-10 08:38] LABS: Glycohemoglobin (HgbA1c) 9.5 % (4.0-5.6)
[2024-09-10] MEDS: PLAQUENIL 400 MG PO (09:55)
[2024-09-10 11:20] VITALS: BP 110/61
[2024-09-10 11:53] LABS: Glucose - Point of Care 372 mg/dl (70-99)
[2024-09-10] MEDS: MAGNESIUM SULFATE 100 IV (12:18)
[2024-09-10] MEDS: NOVOLOG FLEXPEN-MODERATE RESISTANCE 9 UNITS SC (12:28)
--- NOTE | 2024-09-10 12:52 | CON.ONC ---
Impression
Impression
symptomatic hypomagnesemia
diarrhea
metastatic breast cancer, on eribulin ([place])
Plan
Plan
Continue to monitor magnesium, replete as needed
Suspect magnesium loss is related to diarrhea, continue imodium
She has f/u with Dr. Dyer on 09/12, will monitor Mag as outpatient
Oncology will sign off, please call w/ questions
Patient History
History of Present Illness
Nimisha is a [address] Dyer, with metastatic triple negative breast cancer, currently receiving Halaven chemotherapy. She has been having ongoing diarrhea, and presented to the ER yesterday with muscle cramps and spasms. Labs were noted
for mag of 0.8. She was admitted, given IV mag, and today her mag is 1.6, with resolution of symptoms. Her diarrhea is under better control w/ imodium.
Past-Medical/Surgical History
PMH/PSH - metastatic breast cancer, HTN, DM, HLD, arthritis, lumbar surgery, neck surgery
SH - +tobacco, social alcohol,
FH - N/C
Patient Medication
�Medication �Instructions �Recorded �Confirmed �Last Taken �Type
folic acid 1 mg tablet 3 mg PO DAILY Supplement 07/27/20 09/09/24 09/09/24 History
metformin 1,000 mg tablet 1,000 mg PO BID@0800,1700 Diabetes 07/27/20 09/09/24 09/09/24 History
methotrexate sodium 2.5 mg tablet 10 mg PO TUWE@1800 arthritis 07/27/20 09/09/24 09/04/24 History
hydroxychloroquine 200 mg tablet 400 mg PO DAILY LUPUS 06/29/22 09/09/24 09/09/24 History
insulin glargine 100 unit/mL (3 50 unit SC HS Diabetes 06/29/22 09/09/24 09/08/24 History
mL) subcutaneous pen (Lantus
Solostar U-100 Insulin)
pantoprazole 40 mg tablet,delayed 40 mg PO DAILY Gastrointestinal 01/29/24 09/09/24 09/09/24 History
release Issue
pregabalin 100 mg capsule 100 mg PO TID Mental Health/Anxiety 01/29/24 09/09/24 09/09/24 History
apixaban 5 mg tablet (Eliquis) 5 mg PO BID Blood Clot 07/09/24 09/09/24 09/09/24 History
Prevention/Tx
ezetimibe 10 mg tablet 10 mg PO DAILY High Cholesterol 07/09/24 09/09/24 09/09/24 History
ondansetron HCl 8 mg tablet 8 mg PO Q8HPRN PRN Nausea 07/09/24 09/09/24 09/09/24 History
docusate sodium 100 mg capsule 100 mg PO DAILY PRN constipation 08/05/24 09/09/24 09/07/24 History
(Colace)
lidocaine-prilocaine 2.5 %-2.5 % 1 applic topical DAILYPRN PRN port 08/05/24 09/09/24 09/05/24 History
topical cream access
insulin lispro 100 unit/mL 1 sliding scale dose SC AC Diabetes 09/05/24 09/09/24 09/09/24 History
subcutaneous pen (Humalog KwikPen
(U-100) Insulin)
magnesium oxide 800 mg PO DAILY Supplement 09/09/24 09/09/24 09/09/24 History
prochlorperazine maleate 10 mg 10 mg PO BIDPRN PRN nausea 09/09/24 09/09/24 09/09/24 History
tablet
Active Medications
Generic Name Dose Route Start Last Admin
Trade Name Freq PRN Reason Stop Dose Admin
Acetaminophen 650 mg 09/09/24 20:59 09/10/24 03:00
Acetaminophen 325 Mg Tablet PO 10/07/24 20:58 650 mg
Q4HPRN PRN Administration
mild pain/COMBS/temp> 100.4F
Apixaban 5 mg 09/09/24 20:59 09/10/24 08:08
Apixaban (Eliquis) 5 Mg Tablet PO 10/07/24 20:58 5 mg
BID JOSE Administration
Bisacodyl 10 mg 09/09/24 20:59
Bisacodyl 10 Mg Rectal Suppository RECTAL 10/07/24 20:58
[id number] PRN
constipation
Dextrose 12.5 grams 09/09/24 20:59
Dextrose 50% (0.5 Grams/Ml) 50 Ml Syringe IV 10/07/24 20:58
[id number] PRN
hypoglycemia
Protocol
Ezetimibe 10 mg 09/10/24 08:00 09/10/24 08:09
Ezetimibe (Zetia) 10 Mg Tablet PO 10/08/24 07:59 10 mg
DAILY JOSE Administration
Folic Acid 3 mg 09/10/24 08:00 09/10/24 08:09
Folic Acid 1 Mg Tablet PO 10/08/24 07:59 3 mg
DAILY JOSE Administration
Glucagon 1 mg 09/09/24 20:59
Glucagon 1 Mg Vial IM 10/07/24 20:58
PRN PRN
hypoglycemia
Protocol
Hydroxychloroquine Sulfate 400 mg 09/10/24 08:00 09/10/24 09:55
Hydroxychloroquine 200 Mg Tablet PO 10/08/24 07:59 400 mg
DAILY JOSE Administration
Insulin Glargine 50 units/ 0.5 mls @ 0 mls/hr 09/09/24 22:00 09/09/24 22:02
Device SC 10/07/24 21:59 0.5 mls
HS JOSE Administration
As Directed
Magnesium Sulfate 4 gram in 100 mls @ 25 mls/hr 09/10/24 11:53 09/10/24 12:18
Magnesium Sulfate IV 09/10/24 15:52 100 mls
NOW STA Administration
Insulin Aspart 0 units 09/10/24 07:30 09/10/24 12:28
Insulin Aspart Moderate Resistance 300 Units/3 Ml Pen.Injctr SC 10/08/24 07:29 9 units
AC JOSE Administration
Protocol
Magnesium 168 mg 09/10/24 08:00 09/10/24 08:08
Magnesium Lactate 84 Mg Tablet PO 10/08/24 07:59 168 mg
DAILY JOSE Administration
Metformin HCl 1,000 mg 09/10/24 08:00 09/10/24 08:09
Metformin 1000 Mg Regular Release Tablet PO 10/08/24 07:59 1,000 mg
BID@0800,1700 JOSE Administration
Ondansetron HCl 8 mg 09/09/24 21:18
Ondansetron 4 Mg Tablet PO 10/07/24 21:17
Q8HPRN PRN
Nausea
Pantoprazole Sodium 40 mg 09/10/24 08:00 09/10/24 08:08
Pantoprazole 40 Mg Delayed Release Tablet PO 10/08/24 07:59 40 mg
DAILY JOSE Administration
Polyethylene Glycol 17 grams 09/09/24 20:59
Polyethylene Glycol Powder 17 Grams Packet PO 10/07/24 20:58
DAILYPRN PRN
constipation
Pregabalin 100 mg 09/09/24 22:00 09/10/24 08:09
Pregabalin 100 Mg Capsule PO 10/07/24 21:59 100 mg
TID JOSE Administration
Prochlorperazine Maleate 10 mg 09/09/24 20:59
Prochlorperazine 10 Mg Tablet PO 10/07/24 20:58
BIDPRN PRN
nausea
Senna/Docusate Sodium 1 tablet 09/09/24 20:59
Docusate W/Senna (Celeste-Colace) Tablet PO 10/07/24 20:58
BIDPRN PRN
constipation
Sodium Chloride 0 flush 09/09/24 22:00
Sodium Chloride 0.9% (Flush) Syringe IV 10/07/24 21:59
PER PROTOCOL JOSE
Review of Systems
-
History Source: Patient and Records
All Other Systems: Not reviewed unless documented
Physical Exam
-
General: No Apparent Distress, Comfortable and Conversant
HEENT: Negative Jaundice or Moist Mucous Membranes
Extremities: No C/C/E
Neurology: Non Focal, No Lateralizing Symptoms and No Word Finding Difficulty
Psych: Intact Judgement/Insight
Labs
Lab Results
WBC 16.6 10^3/uL (4.8-10.8) H 09/10/24 06:32
RBC 3.11 10^6/uL (4.20-5.40) L 09/10/24 06:32
Hgb 10.9 g/dL (12.0-16.0) L 09/10/24 06:32
Hct 30.8 % (37.0-47.0) L 09/10/24 06:32
MCV 99.0 fL (81.0-99.0) 09/10/24 06:32
MCH 35.0 pg (27.0-31.0) H 09/10/24 06:32
MCHC 35.4 g/dL (33.0-37.0) 09/10/24 06:32
RDW 16.0 % (11.5-14.5) H 09/10/24 06:32
Plt Count 224 10^3/uL (130-400) 09/10/24 06:32
MPV 10.3 fL (7.4-10.4) 09/10/24 06:32
Abs Immat Gran (auto) 1.1 10^3/uL (0-0.05) H 09/09/24 16:13
Absolute Neuts (auto) 5.6 10^3/uL (1.4-6.5) 09/09/24 16:13
Absolute Lymphs (auto) 1.6 10^3/uL (1.2-3.4) 09/09/24 16:13
Absolute Monos (auto) 1.5 10^3/uL (0.1-0.6) H 09/09/24 16:13
Absolute Eos (auto) 0.1 10^3/uL (0-0.7) 09/09/24 16:13
Absolute Basos (auto) 0.2 10^3/uL (0-0.2) 09/09/24 16:13
Immature Gran % 10.6 % (0-0.5) H 09/09/24 16:13
Neutrophils % 55.8 % (42.2-75.2) 09/09/24 16:13
Lymphocytes % 16.0 % (20.5-51.1) L 09/09/24 16:13
Monocytes % 15.0 % (1.7-9.3) H 09/09/24 16:13
Eosinophils % 0.9 % (0-6) 09/09/24 16:13
Basophils % 1.7 % (0-2) 09/09/24 16:13
Creatinine 0.7 mg/dL (0.6-1.0) 09/10/24 06:32
Vital Signs
Vital Signs
Temp Pulse Resp BP Pulse Ox
98.6 F 88 16 110/61 91
09/10/24 11:20 09/10/24 11:20 09/10/24 11:20 09/10/24 11:20 09/10/24 11:20
--- NOTE | 2024-09-10 13:45 | W.PN.HOSP.TC ---
Addendum entered and electronically signed by Cristin Young MD 09/10/24 19:06:
I saw and evaluated the patient independently. I reviewed the resident�s note and agree with findings and plan as documented by Dr. So.
GENERAL: well developed, well nourished, chronically ill appearing female in no apparent distress
HEENT: NC/AT-- no O2 requirements
HEART: regular rate and rhythm, +S1, +S2
LUNGS : clear to auscultation bilaterally
ABDOM: soft, nontender, nondistended, + bowel sounds
EXT: no cyanosis, clubbing, or edema
NEUROLOGIC: grossly intact
Diffuse muscle cramps/spasms likely from hypomagnesemia likely from chemo with some contribution of diarrhea 2 days prior--of not, pt is on home oral magnesium supplements as noted on her outpt meds--cont to replete--would prefer to have mag level
closer to 2
History of metastatic breast cancer to lung--apprec onc--chemo as outpt
Type 2 diabetes with hyperglycemia--uncontrolled--A1c 9.5--Continue with Lantus and sliding scale (increased to high resistance)--consult DM RETAIL ACCOUNT SPECIALIST--consider increasing glargine at splitting dose (27 Q12H?)--Metformin continued
Anemia likely from chronic disease--Hemoglobin stable at 10.9--No active bleeding noted
Pseudohyponatremia--from elevated blood glucose, corrects to 139--Continue to monitor
GERD- pantoprazole continued
History of PE--On Eliquis
Hyperlipidemia-On Zetia
RA and SLE--c/w NODULIZER methotrexate and hydroxychloroquine
DVT PPX - Lovenox SQ
Full code
Original Note:
Today's Communication/Plan
-
4g of mg
repeat labs in the am
high resistance sliding scale
Assessment / Plan
Assessment / Plan
63-year-old female past medical for metastatic right breast cancer on chemotherapy, lupus, diabetes, prior PE on Eliquis, hypertension, herniated disc, hyperlipidemia, presented for diffuse muscle cramping.
secondary to severe hypomagnesemia secondary chemotherapy.
# Diffuse muscle cramps/spasms likely from hypomagnesemia likely from chemo
-4 g of magnesium in ER on 09/09
-magnesium level 1.6 today.
-Additional 4 g of magnesium today
-Monitor mag level in the morning
# History of metastatic breast cancer
-At present on chemo
-Last chemo was on , next due in 2 weeks
-Follows Dr. Dyer as an outpatient
-Oncology consulted
# Type 2 diabetes with hyperglycemia
-A1c 9.5
-Continue with Lantus and sliding scale( increased to high resistance)
-Metformin continued
#diarrhea
-resolved
# Anemia likely from chronic disease
-Hemoglobin stable at 10.9
-No active bleeding
-Continue to monitor
# Pseudohyponatremia with elevated blood glucose
-Continue to monitor
# GERD
- pantoprazole continued
# History of PE
-On Eliquis
# Hyperlipidemia
-On Zetia
# RA and SLE
c/w NODULIZER methotrexate and hydroxychloroquine
DVT PPX - Lovenox SQ
Full code
Anticipated Discharge: 24 - 48 hours
Subjective/Interval History
-
Date of Service: September 10, 2024
Interval events: Significant improvement in muscle cramps with some residual spasm in the right leg and left arm
Objective Data
-
Labs:
Laboratory Results
09/10/24
06:32
WBC 16.6 H
Hgb 10.9 L
Hct 30.8 L
Plt Count 224
Sodium 133 L
Potassium 3.7
Chloride 98
Carbon Dioxide 25
BUN 6 L
Creatinine 0.7
Glucose 308 H
Calcium 8.5
Vital Signs:
Vital Signs
Temp Pulse Resp BP Pulse Ox
98.6 F 88 16 110/61 91
09/10/24 11:20 09/10/24 11:20 09/10/24 11:20 09/10/24 11:20 09/10/24 11:20
I&O
09/09/24 09/10/24 09/11/24
06:59 06:59 06:59
Intake Total 480 / 480
Balance 480 / 480
Review of Systems
-
History Source: Patient
Constitutional: Reports Other (Spasms and cramps)
Respiratory: Reports No Symptoms
Cardiac: Reports No Symptoms
Neuro: Denies Dizzy, Headache or Weakness
Physical Exam
-
General: Well Developed, Well Nourished and No Apparent Distress
Respiratory: Clear to Auscultation
Cardiac: Regular Rhythm
GI: Soft, Nontender and Nondistended
Musculoskeletal: No Clubbing, No Cyanosis, No Edema and Other (Spasm in the right lower leg)
Skin: Warm and Dry
Neuro: Awake, Alert and Oriented
Psych: Calm
Data Reviewed
-
Labs: Labs Reviewed by me, Discussed with Physician and Discussed with Patient
--- NOTE | 2024-09-10 15:02 | CM ---
Patient seen at bedside with physicians. Patient stats that she lives in a single home with several stories. Patient has a walker and a cane,scooter at home but has not had any VN or SNF in the past. patient PCP is Dr. Koch and she uses the
[facility] in [place]. Patient is followed by Dr. Dyer as well. Patient plan is for discharge home with no needs and family to transport. CM will continue to follow for discharge planning needs.
Plan; home with family support
[2024-09-10 15:20] VITALS: BP 115/61
[2024-09-10 16:38] LABS: Glucose - Point of Care 298 mg/dl (70-99)
[2024-09-10] MEDS: NOVOLOG FLEXPEN-HIGH RESISTANCE 7 UNITS SC (17:34)
[2024-09-10] MEDS: METHOTREXATE 10 MG PO (19:07)
[2024-09-10 19:41] VITALS: BP 108/56
[2024-09-10 21:37] LABS: Glucose - Point of Care 431 mg/dl (70-99)
[2024-09-10 21:37] LABS: Glucose - Point of Care 450 mg/dl (70-99)
[2024-09-10 22:27] LABS: Glucose 416 mg/dl (70-99)
[2024-09-10] MEDS: LANTUS 0.5 UNITS SC (23:00)
[2024-09-10] MEDS: NOVOLOG FLEXPEN 14 UNITS SC (23:01)
[2024-09-10 23:52] VITALS: BP 124/65
[2024-09-11 01:15] LABS: Glucose - Point of Care 270 mg/dl (70-99)
[2024-09-11 03:36] VITALS: BP 118/63
[2024-09-11 06:00] VITALS: BMI 27.5
--- NOTE | 2024-09-11 06:31 | PTCARENOTE ---
Patient's BS at 2133 >400. Stat glucose order resulted 416, protocol followed and patient received 14 units novolog. Two hour follow up protocol BS at bedside 270. Patient responded well, asymptomatic.
[2024-09-11 06:39] LABS: Hematocrit 31.5 % (37.0-47.0); Mean Corp Hgb Conc. 34.9 g/dL (33.0-37.0); Mean Corpuscular Hgb 34.9 pg (27.0-31.0); Mean Platelet Volume 10.5 fL (7.4-10.4); Platelet Count 222 10^3/uL (130-400); Red Blood Cell Count 3.15 10^6/uL (4.20-5.40); Red Cell Dist. Width 16.3 % (11.5-14.5)
[2024-09-11 06:56] LABS: Blood Urea Nitrogen 7 mg/dl (7-17); Calcium 8.5 mg/dl (8.4-10.2); Carbon Dioxide 28 mmol/L (22-30); Chloride 97 mmol/L (98-107); Estimated Creatinine Clearance 82 ml/min; Glucose 319 mg/dl (70-99); Magnesium 1.8 mg/dl (1.6-2.3); Potassium 3.7 mmol/L (3.5-5.1); Sodium 135 mmol/L (135-145); eGFR > 60.00
[2024-09-11 07:12] VITALS: BP 119/60
[2024-09-11 07:19] LABS: Glucose - Point of Care 390 mg/dl (70-99)
--- NOTE | 2024-09-11 08:06 | PN.DE.MGMTRT ---
Insulin Management
- -
09/11/2024 Diabetes Management Consult
Patient admitted 09/09 with chest pain, muscle cramps arms, legs and chest. PMH HCL, diabetes, r breast ca with mets to lung, lupus, RA, active smoker. Prior to admission was taking metformin 100o mg BID, humalog ss AC, and lantus 50 units @ hs.
A1C is 9.5%, cr .7, eGFR >60.
Patient receiving metformin 1000 mg BID, high resistance corrective insulin and 50 units lantus @ HS 2200 calorie diet.
09/10 Patient glucose range 270 to 431.
09/11 Patient is awake alert and oriented able to discuss diabetes management. States she has a sliding scal for AC novolog and has taken 6 to 20 units with meals. She has a working glucose monitor with supplies at home.
Will continue 1000 mg metformin BID; start AC novolog 5 units with high resistance corrective and 50 units lantus @ hs. Will change 2200 calorie to 1800 calorie diet. Pre lunch glucose 299, will increase AC novolog to 10 units with moderate
corrective
Diabetes History
- -
Type of Diabetes: 2 requiring insulin
Pre-Admission Diabetes Regimen
09/11/24
06:12
Creatinine 0.7
Lab Results
Hemoglobin A1c 9.5 % (4.0-5.6) H 09/10/24 06:32
Insulin Pump Settings
IP Diabetes Regimen
09/10/24 09/10/24 09/10/24
11:52 16:37 21:33
Glucose
POC Glucose 372 H 298 H 450 H
09/10/24 09/10/24 09/11/24
21:35 22:01 01:14
Glucose 416 H
POC Glucose 431 H 270 H
09/11/24 09/11/24
06:12 07:17
Glucose 319 H
POC Glucose 390 H
Meal type: Breakfast
Amount consumed: 100%
Patient Education
[2024-09-11] MEDS: ZETIA 10 MG PO (08:18)
[2024-09-11] MEDS: PROTONIX 40 MG PO (08:18)
[2024-09-11] MEDS: FOLVITE 3 MG PO (08:18)
[2024-09-11] MEDS: PLAQUENIL 400 MG PO (08:18)
[2024-09-11] MEDS: GLUCOPHAGE 1000 MG PO ×2 (08:18→16:47)
[2024-09-11] MEDS: MAG-TAB SR 168 MG PO (08:18)
[2024-09-11] MEDS: ELIQUIS 5 MG PO ×2 (08:18→23:05)
[2024-09-11] MEDS: LYRICA 100 MG PO ×3 (08:19→23:04)
[2024-09-11] MEDS: NOVOLOG FLEXPEN-HIGH RESISTANCE 12 UNITS SC (08:19)
[2024-09-11] MEDS: NOVOLOG FLEXPEN 5 UNITS SC ×2 (09:42→12:36)
[2024-09-11 11:22] VITALS: BP 120/74
[2024-09-11 11:38] LABS: Glucose - Point of Care 299 mg/dl (70-99)
[2024-09-11] MEDS: NOVOLOG FLEXPEN-HIGH RESISTANCE 7 UNITS SC (12:36)
--- NOTE | 2024-09-11 12:58 | W.PN.HOSP.TC ---
Addendum entered and electronically signed by Cristin Young MD 09/11/24 14:25:
I saw and evaluated the patient independently. I reviewed the resident�s note and agree with findings and plan as documented by Dr. So.
GENERAL: well developed, well nourished, chronically ill appearing female in no apparent distress
HEENT: NC/AT-- no O2 requirements
HEART: regular rate and rhythm, +S1, +S2
LUNGS : clear to auscultation bilaterally
ABDOM: soft, nontender, nondistended, + bowel sounds
EXT: no cyanosis, clubbing, or edema
NEUROLOGIC: grossly intact
Diffuse muscle cramps/spasms--resolved-- likely from hypomagnesemia likely from chemo with some contribution of diarrhea 2 days prior--of note, pt is on home oral magnesium supplements as noted on her outpt meds--cont to replete
History of metastatic breast cancer to lung--apprec onc--chemo as outpt
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
standing insulin with meals
Anemia likely from chronic disease--Hemoglobin stable at 10.9--No active bleeding noted
Pseudohyponatremia--from elevated blood glucose, corrects to 139--Continue to monitor
GERD- pantoprazole continued
History of PE--On Eliquis
Hyperlipidemia-On Zetia
RA and SLE--c/w HYPNOTHERAPIST methotrexate and hydroxychloroquine
DVT PPX - Lovenox SQ
Full code
Original Note:
Today's Communication/Plan
-
Continue to monitor blood sugars for next 24 hours
Anticipate discharge tomorrow
Assessment / Plan
Assessment / Plan
63-year-old female past medical for metastatic right breast cancer on chemotherapy, lupus, diabetes, prior PE on Eliquis, hypertension, herniated disc, hyperlipidemia, presented for diffuse muscle cramping.
# Diffuse muscle cramps/spasms likely from hypomagnesemia likely from chemo
-4 g of magnesium in ER on 09/09 and 4 g on 09/10
-magnesium level 1.8 today.
-No additional mag for now
-Monitor mag level in the morning
# History of metastatic breast cancer
-At present on chemo
-Last chemo was on , next due in 2 weeks
-Follows Dr. Dyer as an outpatient
-Appreciate oncology input
# Type 2 diabetes with hyperglycemia
-A1c 9.5
-Continue with Lantus at at bedtime
-Start insulin aspart 10 units with meal s per recommendations from diabetic PSYCHOLOGIST ENGINEERING
-Continue moderate resistance sliding scale
-Metformin continued
-Continue to monitor blood sugars for the next 24 hours
#diarrhea
-resolved
# Anemia likely from chronic disease
-Hemoglobin stable at 11.0
-No active bleeding
# Pseudohyponatremia with elevated blood glucose
-Resolved
# GERD
- pantoprazole continued
# History of PE
-On Eliquis
# Hyperlipidemia
-On Zetia
# RA and SLE
c/w HYPNOTHERAPIST methotrexate and hydroxychloroquine
DVT PPX - Lovenox SQ
Full code
Anticipated Discharge: 24 - 48 hours
Subjective/Interval History
-
Date of Service: September 11, 2024
Interval history: No new complaints.
Objective Data
-
Labs:
Laboratory Results
09/11/24
06:12
WBC 36.0 H
Hgb 11.0 L
Hct 31.5 L
Plt Count 222
Sodium 135
Potassium 3.7
Chloride 97 L
Carbon Dioxide 28
BUN 7
Creatinine 0.7
Glucose 319 H
Calcium 8.5
Vital Signs:
Vital Signs
Temp Pulse Resp BP Pulse Ox
99.3 F 91 16 120/74 95
09/11/24 11:22 09/11/24 11:22 09/11/24 11:22 09/11/24 11:22 09/11/24 11:22
I&O
09/10/24 09/11/24 09/12/24
06:59 06:59 06:59
Intake Total 480 / 480 1660 / 1660
Balance 480 / 480 1660 / 1660
Review of Systems
-
History Source: Patient
Constitutional: Reports No Symptoms
Respiratory: Reports No Symptoms
Cardiac: Reports No Symptoms
Abdomen/GI: Reports No Symptoms
Musculoskeletal: Reports No Symptoms
Physical Exam
-
General: Well Developed, Well Nourished and Appears Chronically Ill
Respiratory: Clear to Auscultation
Cardiac: Regular Rhythm
GI: Soft and Nontender
Skin: Warm and Dry
Neuro: Awake, Alert and Oriented
Psych: Calm
Data Reviewed
-
Labs: Labs Reviewed by me, Discussed with Physician and Discussed with Patient
[2024-09-11] MEDS: NOVOLOG FLEXPEN SC (13:16)
--- NOTE | 2024-09-11 14:16 | CM ---
Patient seen at bedside with physicians. Patient agreed to stay until tomorrow after discussion with physician to follow DM. Patient to transport home. CM will continue to follow for discharge planning needs.
Plan; home with family follow up with physician/PCP
[2024-09-11 15:30] VITALS: BP 117/55
[2024-09-11 16:27] LABS: Glucose - Point of Care 323 mg/dl (70-99)
[2024-09-11] MEDS: NOVOLOG FLEXPEN-MODERATE RESISTANCE 7 UNITS SC (16:46)
[2024-09-11] MEDS: NOVOLOG FLEXPEN 10 UNITS SC (16:46)
[2024-09-11 21:30] LABS: Glucose - Point of Care 335 mg/dl (70-99)
[2024-09-11] MEDS: LANTUS 0.5 UNITS SC (23:02)
[2024-09-11 23:30] VITALS: BP 129/66
[2024-09-12 06:35] LABS: Hematocrit 31.3 % (37.0-47.0); Hemoglobin 10.6 g/dL (12.0-16.0); Mean Corp Hgb Conc. 33.9 g/dL (33.0-37.0); Mean Corpuscular Hgb 34.2 pg (27.0-31.0); Mean Platelet Volume 10.9 fL (7.4-10.4); Platelet Count 195 10^3/uL (130-400); Red Cell Dist. Width 16.7 % (11.5-14.5); White Blood Cell Count 30.3 10^3/uL (4.8-10.8)
--- NOTE | 2024-09-12 06:48 | W.PN.HOSP.TC ---
Addendum entered and electronically signed by Cristin Young MD 09/12/24 13:10:
I saw and evaluated the patient independently. I reviewed the resident�s note and agree with findings and plan as documented by Dr. So.
GENERAL: well developed, well nourished, chronically ill appearing female in no apparent distress
HEENT: NC/AT-- no O2 requirements
HEART: regular rate and rhythm, +S1, +S2
LUNGS : clear to auscultation bilaterally
ABDOM: soft, nontender, nondistended, + bowel sounds
EXT: no cyanosis, clubbing, or edema
NEUROLOGIC: grossly intact
Diffuse muscle cramps/spasms--resolved-- likely from hypomagnesemia likely from chemo with some contribution of diarrhea 2 days prior--of note, pt is on home oral magnesium supplements as noted on her outpt meds--cont to replete aas needed
History of metastatic breast cancer to lung--apprec onc--chemo as outpt--pt now with leukocytosis--? GCSF with last chemo--no signs of infection, doubt related to steroids received with chemo
Type 2 diabetes with hyperglycemia--uncontrolled--A1c 9.5--Continue with Lantus and sliding scale (increased to high resistance)--apprec DM PACKER DENTURE-- increasing glargine and splitting dose to 30 units BID, increasing mealtime insulin to 15
units--Metformin continued
Anemia likely from chronic disease--Hemoglobin stable at 10.9--No active bleeding noted
Pseudohyponatremia--from elevated blood glucose, corrects to 139--Continue to monitor
GERD- pantoprazole continued
History of PE--On Eliquis
Hyperlipidemia-On Zetia
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
DVT PPX - Lovenox SQ
Full code
Original Note:
Today's Communication/Plan
-
Replete magnesium
Pending diabetic PACKER DENTURE recs for blood glucose control
Assessment / Plan
Assessment / Plan
63-year-old female past medical for metastatic right breast cancer on chemotherapy, lupus, diabetes, prior PE on Eliquis, hypertension, herniated disc, hyperlipidemia, presented for diffuse muscle cramping.
# Diffuse muscle cramps/spasms likely from hypomagnesemia likely from chemo
-4 g of magnesium in ER on 09/09 and 4 g on 09/10
-magnesium level 1.2 dropped from 1.8 yesterday
-Order 4 gram magnesium today
-Repeat mag level in the evening
# History of metastatic breast cancer
-At present on chemo
-Last chemo was on , next due in 2 weeks
-Follows Dr. Dyer as an outpatient
-Appreciate oncology input
# Type 2 diabetes with hyperglycemia
-A1c 9.5
-Continue with Lantus at at bedtime
-Started insulin aspart 10 units with meal as per recommendations from diabetic HEAD [employer] ENGLISH on 09/11/2024
-Blood sugar remain high
-Continue moderate resistance sliding scale
-Metformin continued
-Continue to monitor blood sugars for the next 24 hours
-Pending recommendation from the diabetic PACKER DENTURE; might consider increasing glargine and splitting (27 units every 12 hours )
# Leukocytosis
-Likely from G-csf during chemo versus steroid use (less likely)
-Check with oncology for clarification
#diarrhea
-resolved
# Anemia likely from chronic disease
-Hemoglobin stable at 11.0
-No active bleeding
# Pseudohyponatremia with elevated blood glucose
-Resolved
# GERD
- pantoprazole continued
# History of PE
-On Eliquis
# Hyperlipidemia
-On Zetia
# RA and SLE
c/w TAPER PRINTED CIRCUIT LAYOUT methotrexate and hydroxychloroquine
DVT PPX - Lovenox SQ
Full code
Anticipated Discharge: 24 - 48 hours
Subjective/Interval History
-
Date of Service: September 12, 2024
Interval events: No new complaints
Objective Data
-
Labs:
Laboratory Results
09/12/24
05:51
WBC 30.3 H
Hgb 10.6 L
Hct 31.3 L
Plt Count 195
Sodium Pending
Potassium Pending
Chloride Pending
Carbon Dioxide Pending
BUN Pending
Creatinine Pending
Glucose Pending
Calcium Pending
Vital Signs:
Vital Signs
Temp Pulse Resp BP Pulse Ox
98.1 F 91 15 129/66 93
09/11/24 23:30 09/11/24 23:30 09/11/24 23:30 09/11/24 23:30 09/11/24 23:30
I&O
09/10/24 09/11/24 09/12/24
06:59 06:59 06:59
Intake Total 480 / 480 1660 / 1660 1180 / 1180
Balance 480 / 480 1660 / 1660 1180 / 1180
Review of Systems
-
History Source: Patient
Constitutional: Reports No Symptoms
Respiratory: Reports No Symptoms
Cardiac: Reports No Symptoms
Abdomen/GI: Reports No Symptoms
Musculoskeletal: Reports No Symptoms
Physical Exam
-
General: Well Developed, Well Nourished and Appears Chronically Ill
HEENT: Atraumatic
Respiratory: Clear to Auscultation
Cardiac: Regular Rhythm
GI: Soft and Nontender
Musculoskeletal: No Edema
Skin: Warm and Dry
Neuro: Awake, Alert and Oriented
Psych: Calm
Data Reviewed
-
Labs: Labs Reviewed by me, Discussed with Physician and Discussed with Patient
[2024-09-12 06:55] LABS: Blood Urea Nitrogen 13 mg/dl (7-17); Calcium 8.6 mg/dl (8.4-10.2); Carbon Dioxide 28 mmol/L (22-30); Chloride 96 mmol/L (98-107); Estimated Creatinine Clearance 82 ml/min; Glucose 306 mg/dl (70-99); Magnesium 1.2 mg/dl (1.6-2.3); Potassium 3.8 mmol/L (3.5-5.1); Sodium 136 mmol/L (135-145); eGFR > 60.00
[2024-09-12 07:24] LABS: Glucose - Point of Care 353 mg/dl (70-99)
--- NOTE | 2024-09-12 07:30 | PN.DE.MGMTRT ---
Insulin Management
- -
09/12/2024 Diabetes Management Consult Follow up
Patient admitted 09/09 with chest pain, muscle cramps arms, legs and chest. PMH HCL, diabetes, r breast ca with mets to lung, lupus, RA, active smoker. Prior to admission was taking metformin 100o mg BID, humalog ss AC, and lantus 50 units @ hs.
A1C is 9.5%, cr .7, eGFR >60.
Patient receiving metformin 1000 mg BID, high resistance corrective insulin and 50 units lantus @ HS 2200 calorie diet.
Patient is awake alert and oriented able to discuss diabetes management. States she has a sliding scale for AC novolog and has taken 6 to 20 units with meals. She has a working glucose monitor with supplies at home.
09/11 Glucose range yesterday 270 to 431 with metformin and corrective nsulin only. Will continue 1000 mg metformin BID; start AC novolog 5 units with high resistance corrective and 50 units lantus @ hs. Will change 2200 calorie to 1800 calorie
diet. Pre lunch glucose 299, will increase AC novolog to 10 units with moderate corrective.
09/12 Fasting glucose remains elevated, 353. Will change lantus to 30 units BID and increase AC novolog to 15 with moderate corrective. Discussed with nurse and patient.
Diabetes History
- -
Type of Diabetes: 2 requiring insulin
Pre-Admission Diabetes Regimen
09/12/24
05:51
Creatinine 0.7
Lab Results
Hemoglobin A1c 9.5 % (4.0-5.6) H 09/10/24 06:32
Insulin Pump Settings
IP Diabetes Regimen
09/11/24 09/11/24 09/11/24
11:37 16:26 21:28
Glucose
POC Glucose 299 H 323 H 335 H
09/12/24 09/12/24
05:51 07:23
Glucose 306 H
POC Glucose 353 H
Meal type: Lunch
Meal type: Breakfast
Amount consumed: 100%
Amount consumed: 100%
Patient Education
[2024-09-12 07:44] VITALS: BP 117/68
[2024-09-12] MEDS: LYRICA 100 MG PO ×3 (08:17→22:18)
[2024-09-12] MEDS: FOLVITE 3 MG PO (08:17)
[2024-09-12] MEDS: GLUCOPHAGE 1000 MG PO ×2 (08:18→17:28)
[2024-09-12] MEDS: PLAQUENIL 400 MG PO (08:18)
[2024-09-12] MEDS: PROTONIX 40 MG PO (08:18)
[2024-09-12] MEDS: ZETIA 10 MG PO (08:18)
[2024-09-12] MEDS: MAG-TAB SR 168 MG PO (08:18)
[2024-09-12] MEDS: ELIQUIS 5 MG PO ×2 (08:19→22:19)
--- NOTE | 2024-09-12 09:36 | W.PN.ONC ---
Today's Communication / Plan
-
Aggressive magnesium replete meant
Aggressive therapy for diarrhea
Sign off follow-up
Impression
Impression
symptomatic hypomagnesemia
diarrhea
metastatic breast cancer, on eribulin ([place])
Subjective/Objective
Subjective/Objective
Patient sitting in a chair without new complaints. She states that her bowel movements have become less frequent and better formed.
Vital Signs:
Vital Signs
Temp Pulse Resp BP Pulse Ox
98.0 F 77 16 117/68 90
09/12/24 07:44 09/12/24 07:44 09/12/24 07:44 09/12/24 07:44 09/12/24 07:44
Alert oriented
Regular
No rales or rhonchi
Symmetrical lower extremities
Lab Results:
Laboratory Data
WBC 30.3 10^3/uL (4.8-10.8) H 09/12/24 05:51
Hgb 10.6 g/dL (12.0-16.0) L 09/12/24 05:51
Plt Count 195 10^3/uL (130-400) 09/12/24 05:51
eGFR > 60.00 09/12/24 05:51
[2024-09-12] MEDS: NOVOLOG FLEXPEN 15 UNITS SC ×2 (10:34→12:07)
[2024-09-12] MEDS: NOVOLOG FLEXPEN-MODERATE RESISTANCE 9 UNITS SC (10:34)
[2024-09-12] MEDS: MAGNESIUM SULFATE 100 IV (10:35)
[2024-09-12] MEDS: LANTUS 0.3 UNITS SC ×2 (10:38→22:19)
[2024-09-12 11:45] LABS: Glucose - Point of Care 313 mg/dl (70-99)
[2024-09-12] MEDS: NOVOLOG FLEXPEN-MODERATE RESISTANCE 7 UNITS SC (12:07)
--- NOTE | 2024-09-12 15:01 | CM ---
Patient met with physician and plan is for further monitoring of DM medications. Patient willing to remain per physician and plan is for discharge home with VN if needed when medically appropriate. CM will continue to follow for discharge planning
needs.
Plan; patient uncertain if she will need VN at discharge; watch for VN needs
[2024-09-12 15:44] VITALS: BP 149/66
--- NOTE | 2024-09-12 16:26 | PTCARENOTE ---
patient reports BM's are less frequent and starting to form, tolerating diet, independent in room, vss. magnesium rider infused for magnesium level of 1.2, this am. next Magnesium level at 1800, will continue to monitor.
[2024-09-12 16:34] LABS: Glucose - Point of Care 89 mg/dl (70-99)
[2024-09-12] MEDS: NOVOLOG FLEXPEN-MODERATE RESISTANCE SC (16:36)
--- NOTE | 2024-09-12 17:39 | PTCARENOTE ---
davider texted Dr. Gutiérrez as patient's pre meal accuchecks today were 353, 313 and 89. at 1742, obtained telephone order for 8units Novolog insulin SC with dinner tonight and then continue Novolog 15units SC ac. patient made aware, will continue to
monitor.
[2024-09-12] MEDS: NOVOLOG FLEXPEN SC (17:54)
[2024-09-12] MEDS: NOVOLOG FLEXPEN 8 UNITS SC (18:31)
[2024-09-12 20:22] LABS: Magnesium 1.8 mg/dl (1.6-2.3)
[2024-09-12 21:22] LABS: Glucose - Point of Care 143 mg/dl (70-99)
[2024-09-13 00:06] VITALS: BP 107/62
--- NOTE | 2024-09-13 06:44 | W.PN.HOSP.TC ---
Addendum entered and electronically signed by Cristin Young MD 09/13/24 13:13:
I saw and evaluated the patient independently. I reviewed the resident�s note and agree with findings and plan as documented by Dr. So.
GENERAL: well developed, well nourished, chronically ill appearing female in no apparent distress
HEENT: NC/AT-- no O2 requirements
HEART: regular rate and rhythm, +S1, +S2
LUNGS : clear to auscultation bilaterally
ABDOM: soft, nontender, nondistended, + bowel sounds
EXT: no cyanosis, clubbing, or edema
NEUROLOGIC: grossly intact
Diffuse muscle cramps/spasms--resolved-- likely from hypomagnesemia likely from chemo with some contribution of diarrhea 2 days prior--of note, pt is on home oral magnesium supplements as noted on her outpt meds--cont to replete as needed
History of metastatic breast cancer to lung--apprec onc--chemo as outpt--pt now with leukocytosis--got GCSF with last chemo--no signs of infection
Type 2 diabetes with hyperglycemia--uncontrolled--A1c 9.5--Continue with Lantus and sliding scale (increased to high resistance)--apprec DM CORRECTIONAL SECURITY OFFICER-- increasing glargine and splitting dose to 30 units BID, increasing mealtime insulin to 15
units--Metformin continued
Anemia likely from chronic disease--Hemoglobin stable at 10.9--No active bleeding noted
Pseudohyponatremia--from elevated blood glucose, corrects to 139--Continue to monitor
GERD- pantoprazole continued
History of PE--On Eliquis
Hyperlipidemia-On Zetia
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
DVT PPX - Lovenox SQ
Full code
ok for d/c
Original Note:
Today's Communication/Plan
-
Replete magnesium
discharge today
Assessment / Plan
Assessment / Plan
63-year-old female past medical for metastatic right breast cancer on chemotherapy, lupus, diabetes, prior PE on Eliquis, hypertension, herniated disc, hyperlipidemia, presented for diffuse muscle cramping.
# Diffuse muscle cramps/spasms likely from hypomagnesemia likely from chemo
-4 g of magnesium in ER on 09/09 and 4 g on 09/10 and on 09/12
-magnesium level 1.4 dropped from 1.8 yesterday
-Order 4 gram magnesium today
- increase po mag sr 168 to BID for today
-Repeat mag level on monday, script given to pt on d/c
# History of metastatic breast cancer
-At present on chemo
-Last chemo was on , next due in 2 weeks
-Follows Dr. Dyer as an outpatient
-Appreciate oncology input
# Type 2 diabetes with hyperglycemia
-A1c 9.5
-Continue with Lantus split dose
- insulin aspart 10 units with meal as per recommendations from diabetic [employer]ACT RET[employer] SERVICE MERCHANDISER
-Continue sliding scale
-Metformin continued
-d/c on current regimen
# Leukocytosis
-Likely from G-csf during chemo versus steroid use (less likely)
-confirmed with onc, received pegfilgrastim 09/06
#diarrhea
-resolved
# Anemia likely from chronic disease
-Hemoglobin stable at 11.0
-No active bleeding
# Pseudohyponatremia with elevated blood glucose
-Resolved
# GERD
- pantoprazole continued
# History of PE
-On Eliquis
# Hyperlipidemia
-On Zetia
# RA and SLE
c/w DOOR CAPTAIN methotrexate and hydroxychloroquine
DVT PPX - Lovenox SQ
Full code
Anticipated Discharge: Today
Subjective/Interval History
-
Date of Service: September 13, 2024
Interval events: No new complaints
Objective Data
-
Labs:
Laboratory Results
09/13/24
06:00
WBC Pending
Hgb Pending
Hct Pending
Plt Count Pending
Vital Signs:
Vital Signs
Temp Pulse Resp BP Pulse Ox
98.1 F 82 14 107/62 95
09/13/24 00:06 09/13/24 00:06 09/13/24 00:06 09/13/24 00:06 09/13/24 00:06
I&O
09/11/24 09/12/24 09/13/24
06:59 06:59 06:59
Intake Total 1660 / 1660 1180 / 1180 880 / 880
Balance 1660 / 1660 1180 / 1180 880 / 880
Review of Systems
-
History Source: Patient
Constitutional: Reports No Symptoms
Respiratory: Reports No Symptoms
Cardiac: Reports No Symptoms
Abdomen/GI: Reports No Symptoms
Musculoskeletal: Reports No Symptoms
Physical Exam
-
General: Well Developed, Well Nourished and No Apparent Distress
HEENT: Atraumatic
Respiratory: Clear to Auscultation
Cardiac: Regular Rhythm
GI: Soft and Nontender
Musculoskeletal: No Edema
Skin: Warm and Dry
Neuro: Awake, Alert and Oriented
Psych: Calm
Data Reviewed
-
Labs: Labs Reviewed by me, Discussed with Physician and Discussed with Patient
--- NOTE | 2024-09-13 07:11 | PN.DE.MGMTRT ---
Insulin Management
- -
09/13/2024 Diabetes Management Consult Follow up
Patient admitted 09/09 with chest pain, muscle cramps arms, legs and chest. PMH HCL, diabetes, r breast ca with mets to lung, lupus, RA, active smoker. Prior to admission was taking metformin 100o mg BID, humalog ss AC, and lantus 50 units @ hs.
A1C is 9.5%, cr .7, eGFR >60.
Patient receiving metformin 1000 mg BID, high resistance corrective insulin and 50 units lantus @ HS 2200 calorie diet.
Patient is awake alert and oriented able to discuss diabetes management. States she has a sliding scale for AC novolog and has taken 6 to 20 units with meals. She has a working glucose monitor with supplies at home.
09/12 Fasting glucose remains elevated, 353. Will change lantus to 30 units BID and increase AC novolog to 15 with moderate corrective. Discussed with nurse and patient.
09/13 Pre dinner glucose last evening 89. Will reduce AC novolog to 10 units, and continue lantus 30 units BID and metformin 1000 mg BID.
Will follow for further needed changes.
Diabetes History
- -
Type of Diabetes: 2 requiring insulin
Pre-Admission Diabetes Regimen
Lab Results
Hemoglobin A1c 9.5 % (4.0-5.6) H 09/10/24 06:32
Insulin Pump Settings
IP Diabetes Regimen
09/12/24 09/12/24 09/12/24
07:23 11:44 16:32
POC Glucose 353 H 313 H 89
09/12/24
21:20
POC Glucose 143 H
Meal type: Dinner
Meal type: Lunch
Meal type: Breakfast
Amount consumed: 100%
Amount consumed: 100%
Amount consumed: 100%
Patient Education
[2024-09-13 07:15] VITALS: BP 136/59
[2024-09-13 07:31] LABS: Glucose - Point of Care 233 mg/dl (70-99)
[2024-09-13] MEDS: NOVOLOG FLEXPEN-MODERATE RESISTANCE 3 UNITS SC ×2 (07:31→11:47)
[2024-09-13] MEDS: NOVOLOG FLEXPEN 10 UNITS SC ×2 (07:31→11:46)
[2024-09-13 08:21] LABS: Hematocrit 32.7 % (37.0-47.0); Hemoglobin 11.3 g/dL (12.0-16.0); Mean Corp Hgb Conc. 34.6 g/dL (33.0-37.0); Mean Corpuscular Hgb 34.7 pg (27.0-31.0); Mean Corpuscular Volume 100.3 fL (81.0-99.0); Mean Platelet Volume 10.8 fL (7.4-10.4); Platelet Count 185 10^3/uL (130-400); Red Blood Cell Count 3.26 10^6/uL (4.20-5.40); Red Cell Dist. Width 16.8 % (11.5-14.5); White Blood Cell Count 21.3 10^3/uL (4.8-10.8)
[2024-09-13 08:23] LABS: Magnesium 1.4 mg/dl (1.6-2.3)
[2024-09-13] MEDS: PROTONIX 40 MG PO (09:10)
[2024-09-13] MEDS: LYRICA 100 MG PO (09:10)
[2024-09-13] MEDS: ELIQUIS 5 MG PO (09:10)
[2024-09-13] MEDS: PLAQUENIL 400 MG PO (09:10)
[2024-09-13] MEDS: FOLVITE 3 MG PO (09:11)
[2024-09-13] MEDS: GLUCOPHAGE 1000 MG PO (09:11)
[2024-09-13] MEDS: ZETIA 10 MG PO (09:11)
[2024-09-13] MEDS: MAG-TAB SR 168 MG PO (09:11)
[2024-09-13] MEDS: LANTUS 0.3 UNITS SC (09:13)
[2024-09-13] MEDS: MAGNESIUM SULFATE 100 IV (09:24)
[2024-09-13 10:06] LABS: Absolute Neutrophils -Man Diff 16.1 10^3/uL (1.4-6.5); Atypical Lymphocytes 4 %; Band Neutrophils 10 % (0-3); Lymphocytes 7 % (20-51); Metamyelocytes 3 % (-); Monocytes 5 % (2-9); Myelocytes 5 % (-); Normal RBC Morphology No; Nucleated Red Blood Cells 2 (-); Platelets Checked Yes; Segmented Neutrophils 66 % (42-75)
[2024-09-13 10:07] LABS: Anisocytosis 1+; Hypochromasia 1+; Polychromasia 1+; Total Cells Counted 100
[2024-09-13 11:47] LABS: Glucose - Point of Care 233 mg/dl (70-99)
[2024-09-13 14:20] VITALS: BP 132/72
--- NOTE | 2024-09-13 15:07 | CM ---
CM met with Nimisha prior to discharge. No needs identified.
Plan: Discharge to home with no needs.
--- NOTE | 2024-09-13 17:55 | W.DCSUMMARY ---
Addendum entered and electronically signed by Cristin Young MD 09/13/24 18:04:
Read, reviewed, and agree. See same day progress note for additional details. Time spent coordinating care, DC planning, review of DC plan of care with resident, transition of care, review of records in EMR, med rec, consults, notes, d/w
consultants, nursing, family, and CM = 34 minutes
Original Note:
Discharge Summary
Discharge Data
Date of Admission: 09/09/24
Date of Discharge: 09/13/24
Total time spent discharging patient (in min): 34
-
Pending Results: No
Hospital Course
Discharging Physician : Dionicio So MD ; Cristin Young MD
Disposition : Home
Primary care physician : Abraham Ackerman
Principal Discharge diagnosis : Diffuse muscle cramps/spasms
Chronic Discharge diagnosis : history of metastatic breast cancer, type 2 diabetes mellitus with hyperglycemia, anemia likely from chronic disease, GERD, history of PE, hyperlipidemia, RA and SLE
Hospital Course : 63-year-old with past medical history for hyperlipidemia, type 2 diabetes, right breast cancer, rheumatoid arthritis, lupus presented to us with generalized muscle cramps and muscle spasms. Lab work showed low magnesium, 0.8, she
received 4 g magnesium in the ER and later on 09/10 and 09/12 and 09/13. She was also provided a prescription to have a repeat magnesium level check on Monday. During her stay her blood sugar was found to be uncontrolled and diabetic nurse
practitioner helped with some changes in her insulin. Her home Lantus 50 unit at bedtime was changed to 30 units twice a day and she was started on aspart 10 units with meal. Her other home medication was also continued. During her hospital stay
she was found to have a very high WBC count of 36,000. After reviewing the record was found that she received G�CSF during chemo and also steroid to avoid the side effects which potentially explain elevated WBC count. Her other medications
including Zetia Eliquis pantoprazole will continue during her hospital stay. She was advised to follow-up with the family doctor within a week for further evaluation.
Discharge Plan
-
Patient Disposition: Home (Routine Discharge)
Discharge Diagnosis/Procedures: Diffuse muscle cramps/spasms, history of metastatic breast cancer, type 2 diabetes mellitus with hyperglycemia, anemia likely from chronic disease, GERD, history of PE, hyperlipidemia, RA and SLE
Condition: Good
Diet: Diabetic, Carb Controlled
Activity: No restrictions
Driving Restrictions: As prior to admission
Bathing Restrictions: None
Referrals:
Abraham Ackerman MD [Family Provider] - in less than 1 week
Additional Discharge Medication Instructions: Insulin aspart 10 units with every meal
Insulin glargine/Lantus 30 units twice daily.
Prescriptions:
New
insulin aspart U-100 [Novolog FlexPen U-100 Insulin] 100 unit/mL (3 mL) Insulin Pen
10 unit SC AC Qty: 5 0RF
Rx Instructions:
10 units with every meal
insulin glargine [Lantus Solostar U-100 Insulin] 100 unit/mL (3 mL) Insulin Pen
30 unit SC BID Qty: 5 0RF
Rx Instructions:
30 units twice daily
Continued
methotrexate sodium 2.5 MG tablet
10 mg PO @1800
Rx Instructions:
4 tablets, 2.5mg each on monday and monday to equal 8 tablets between the two days
metformin 1,000 MG tablet
1,000 mg PO BID@0800,1700
folic acid 1 MG tablet
3 mg PO DAILY
hydroxychloroquine 200 mg Tablet
400 mg PO DAILY
pantoprazole 40 mg Tablet,Delayed Release (Dr/Ec)
40 mg PO DAILY
pregabalin 100 mg Capsule
100 mg PO TID
ondansetron HCl 8 mg Tablet
8 mg PO Q8HPRN PRN (Reason: Nausea)
ezetimibe 10 mg Tablet
10 mg PO DAILY
Eliquis 5 mg Tablet
5 mg PO BID
docusate sodium [Colace] 100 mg Capsule
100 mg PO DAILY PRN (Reason: constipation)
lidocaine-prilocaine 2.5-2.5 % Cream
1 applic TOPICAL DAILYPRN PRN (Reason: port access)
prochlorperazine maleate 10 mg Tablet
10 mg PO BIDPRN PRN (Reason: nausea)
magnesium oxide 400 mg magnesium Tablet
800 mg PO DAILY
Discontinued
insulin glargine [Lantus Solostar U-100 Insulin] 100 unit/mL (3 mL) Insulin Pen
50 unit SC HS
insulin lispro [Humalog KwikPen Insulin] 100 unit/mL Insulin Pen
1 sliding scale dose SC AC
Discharge Orders:
Discharge Patient (As Directed); Ordered 09/13/24
Ordered By: Dionicio So
Discharge Date and Time
Discharge Date/Time: 09/13/24 14:26
Print Language: TAJIK
== END 2024-09-13 14:26 | disposition home or self-care (01) | DRG 641 ==
LOC: 3 WEST ACU 19:29
PROVIDERS: Physician Assistant Medical; Registered Nurse; ADMITTING PHYSICIAN Hospitalist; ATTENDING PHYSICIAN Internal Medicine; CONSULT PHYSICIAN Internal Medicine Hematology & Oncology; EMERGENCY PHYSICIAN Emergency Medicine; FAMILY PHYSICIAN Family Medicine
DX: E83.42 Hypomagnesemia (principal); C78.00 Secondary malignant neoplasm of unspecified lung; T45.1X5A Adverse effect of antineoplastic and immunosuppressive drugs, initial encounter; E78.00 Pure hypercholesterolemia, unspecified; M06.9 Rheumatoid arthritis, unspecified; K21.9 Gastro-esophageal reflux disease without esophagitis; I10 Essential (primary) hypertension; C50.919 Malignant neoplasm of unspecified site of unspecified female breast; D63.0 Anemia in neoplastic disease; M32.9 Systemic lupus erythematosus, unspecified; E11.65 Type 2 diabetes mellitus with hyperglycemia; G89.29 Other chronic pain; R19.7 Diarrhea, unspecified; F17.210 Nicotine dependence, cigarettes, uncomplicated; Z88.5 Allergy status to narcotic agent; Z88.8 Allergy status to other drugs, medicaments and biological substances; Z79.84 Long term (current) use of oral hypoglycemic drugs; Z79.4 Long term (current) use of insulin; Z79.01 Long term (current) use of anticoagulants; Z79.899 Other long term (current) drug therapy; Z98.1 Arthrodesis status; Z86.711 Personal history of pulmonary embolism; Z85.3 Personal history of malignant neoplasm of breast
CPT/HCPCS: 80048; 80053; 82550; 82947; 82962; 83036; 83735; 84484; 85025; 85027; 93005; 96365; 99285; J8610

== ENCOUNTER → 2024-09-23 06:54 | Day surgery (SDC) | payer OTHER, SELFPAY ==
[2024-09-09 09:14] VITALS: BMI 27.4
[2024-09-23 07:31] VITALS: BMI 29.0
== END ==
LOC: CATH 06:54
PROVIDERS: ATTENDING PHYSICIAN Internal Medicine; FAMILY PHYSICIAN Family Medicine
DX: I51.89 Other ill-defined heart diseases (principal); I10 Essential (primary) hypertension; E78.5 Hyperlipidemia, unspecified; C50.911 Malignant neoplasm of unspecified site of right female breast; E11.40 Type 2 diabetes mellitus with diabetic neuropathy, unspecified; K21.9 Gastro-esophageal reflux disease without esophagitis; Z72.0 Tobacco use; Z79.01 Long term (current) use of anticoagulants; Z79.4 Long term (current) use of insulin; Z79.84 Long term (current) use of oral hypoglycemic drugs
CPT/HCPCS: 93312; 93320; 93325; 93005

== ENCOUNTER 2024-09-29 15:04 | Emergency (ER) | payer OTHER, SELFPAY ==
[2024-09-29 15:14] VITALS: BP 124/83
--- NOTE | 2024-09-29 15:53 | EDRN ---
Pt states she arrives for constant R heart chest pain described as a pressure at 8/10. Pain started luda 13:00 today. IV VAT RN beeped to access R ACW port at this time per pt request.
[2024-09-29 15:55] VITALS: BMI 27.4
[2024-09-29 16:01] VITALS: BP 133/56
--- NOTE | 2024-09-29 16:13 | EDRN ---
Pt also has R shoulder pain. IV VAT RN is in room accessing R ACW port and drawing ordered labs.
--- NOTE | 2024-09-29 16:15 | EDRN ---
IV VAT RN in room performing R ACW port access w/ blood draw. VAT ROLLOFF DRIVER stated to this RN port is a POWER port.
[2024-09-29 16:40] LABS: % Basophils 1.5 % (0-2); % Eosinophils 3.4 % (0-6); % Immature Granulocytes 0.2 % (0-0.5); % Lymphocytes 31.6 % (20.5-51.1); % Monocytes 10.5 % (1.7-9.3); % Neutrophils 52.8 % (42.2-75.2); Absolute Basophils 0.1 10^3/uL (0-0.2); Absolute Eosinophils 0.1 10^3/uL (0-0.7); Absolute Lymphocytes 1.3 10^3/uL (1.2-3.4); Absolute Monocytes 0.4 10^3/uL (0.1-0.6); Absolute Neutrophils 2.2 10^3/uL (1.4-6.5); Hematocrit 32.5 % (37.0-47.0); Hemoglobin 10.8 g/dL (12.0-16.0); Mean Corp Hgb Conc. 33.2 g/dL (33.0-37.0); Mean Corpuscular Hgb 34.5 pg (27.0-31.0); Mean Corpuscular Volume 103.8 fL (81.0-99.0); Mean Platelet Volume 9.1 fL (7.4-10.4); Nucleated Red Blood Cells % 0 %; Platelet Count 263 10^3/uL (130-400); Red Blood Cell Count 3.13 10^6/uL (4.20-5.40); Red Cell Dist. Width 16.3 % (11.5-14.5); White Blood Cell Count 4.1 10^3/uL (4.8-10.8)
[2024-09-29 16:57] LABS: ALT (SGPT) 18 U/L (0-35); AST (SGOT) 18 U/L (14-36); Albumin 3.7 g/dl (3.5-5.0); Alkaline Phosphatase 65 U/L (38-126); Blood Urea Nitrogen 15 mg/dl (7-17); Calcium 8.9 mg/dl (8.4-10.2); Carbon Dioxide 28 mmol/L (22-30); Chloride 100 mmol/L (98-107); Estimated Creatinine Clearance 85 ml/min; Glucose 210 mg/dl (70-99); Potassium 3.8 mmol/L (3.5-5.1); Sodium 135 mmol/L (135-145); Total Bilirubin 0.5 mg/dl (0.2-1.3); Total Protein 6.1 g/dl (6.3-8.2); eGFR > 60.00
[2024-09-29 17:00] VITALS: BP 136/62
--- NOTE | 2024-09-29 17:02 | ED.GENMED ---
History of Present Illness
General
Chief Complaint: Chest Pain
Source: patient
Exam Limitations: none
Time Seen by Provider: 09/29/24 17:02
History of Present Illness
History of Present Illness:
63-year-old female sudden onset of midsternal chest pain while taking a nap at 1 PM today. Has been continuous since then. Patient points to her mid sternum. It hurts more to take a deep breath. Also worse with coughing twisting and turning. No
back pain or searing pain. No fever. Slight dry cough but this has been chronic. No sputum no hemoptysis.
Past History
Past History
ED Past Medical History: Cancer, Hypercholesterolemia, IDDM and Other
ED Past Surgical History: Gynecological (Partial hysterectomy) and Orthopedic (Cervical spine fusion ); Negative Cardiac
Social History
Tobacco: Smoker
Alcohol: Occasional
Drug: None
Personal:
Living: with family
Employment: Employed
Family History
Family History: Hypertension
Review of Systems
Review of Systems
All Other Systems: Not applicable
Constitutional: Denies fever or chills
Respiratory: Denies hemoptysis or trouble breathing
ABD/GI: Reports no symptoms
Phy Exam
Physical Exam
Physical Exam:
GENERAL: Alert and oriented in no apparent distress
EYE: Orbits normal.
NECK: Supple. Nontender
ENT: Pharynx without erythema. Poor dentition
CARDIAC: Regular rate and rhythm without any obvious murmurs. Port right upper chest wall without surrounding erythema or drainage
LUNGS: A few crackles in the base of the lungs bilaterally. Dry in nature. No respiratory distress. Point tenderness to the mid sternum that reproduces her pain. No erythema crepitus or warmth
ABDOMEN: Soft, without focal tenderness or distention
NEUROLOGICAL: Alert and oriented , grossly non-focal
SKIN: Warm and dry, no rash or lesion, no discoloration, skin intact.
MUSCULOSKELETAL: No edema,no deformity.Good color
PSYCH: Normal and appropriate interaction.
Scores
Heart Score for Chest Pain Patients
STEMI patient?: Not applicable
Course
Orders/Labs/Results
Orders:
Orders
09/29/24 15:05
Electrocardiogram (*1) Urgent
Reason for Study: Chest Pain
EKG- Treatment ONCE
09/29/24 16:23
CMP [Comprehensive Metabolic Panel] Urgent
Complete Blood Count/With Diff Urgent
Magnesium Urgent
Comment: ADD ON
Troponin I Urgent
09/29/24 17:04
Add On- LAB Urgent
Tests Added?: magnesium
09/29/24 17:10
CT Chest Pe Study Urgent
Comment:
Reason For Exam: Pleuritic chest pain. History of breast cancer
Abnormal Lab Results
09/29/24
16:23
WBC 4.1 L 10^3/uL
(4.8-10.8)
RBC 3.13 L 10^6/uL
(4.20-5.40)
Hgb 10.8 L g/dL
(12.0-16.0)
Hct 32.5 L %
(37.0-47.0)
MCV 103.8 H fL
(81.0-99.0)
MCH 34.5 H pg
(27.0-31.0)
RDW 16.3 H %
(11.5-14.5)
Monocytes % 10.5 H %
(1.7-9.3)
Glucose 210 H mg/dl
(70-99)
Magnesium 1.5 L mg/dl
(1.6-2.3)
Total Protein 6.1 L g/dl
(6.3-8.2)
09/29/24 16:23
09/29/24 16:23
Vital Signs
Initial and Last Documented VS:
Initial Vital Signs
Temp Pulse Resp BP Pulse Ox
98.2 F 101 16 124/83 98
09/29/24 15:14 09/29/24 15:14 09/29/24 15:14 09/29/24 15:14 09/29/24 15:14
Last Documented Vital Signs
Temp Pulse Resp BP Pulse Ox
98.2 F 80 21 107/51 96
09/29/24 15:14 09/29/24 18:38 09/29/24 18:38 09/29/24 18:38 09/29/24 18:38
MDM/Problems Addressed
Differential Diagnosis Includes:
Patient describing sudden nonexertional onset of midsternal chest pain very atypical for cardiac. Most likely musculoskeletal or costochondritis. Would consider PE. However relatively low that she is on Eliquis. EKG is stable. Cardiac workup in
progress. All CT scan of the chest. Also will check her magnesium level since it was low recently
*Radiology
Radiology exam reviewed: radiology read reviewed (No acute findings on CT. Slight progression of metastasis)
*Pulse Oximetry
Patient hypoxic: no
*EKG
Interpreted by ED Provider?: Yes
Interpretation: abnormal
Comparison EKG: no changes
Heart Rate: 92
Rate: normal
Rhythm: sinus
[place]: normal axis
Interval: normal interval
QRS Pattern: low voltage
Ischemia: no ischemia
*Critical Care Note
Total Time (30-74mins, 75-104mins- exclusive of procedures): Not Applicable
Data Reviewed
Review of Other/Old Records Reveals: Labs, Records, Radiology Studies, Testing and Discharge Summary
Update Note
Update Note:
Patient is remained stable and nontoxic. No serious etiology found. Prolonged very atypical symptoms. For the this reason do not feel repeat troponin and cardiac testing is necessary. No pulmonary emboli. No acute findings. Clinically
musculoskeletal in nature. Tylenol and follow-up
ED Attending Note
-
Portions of this chart may have been created with voice recognition software.� Occasional wrong word or��sound alike� substitutions may have occurred due to the inherent limitations of voice recognition software.
Discharge Plan
Departure
Patient Disposition: Home (Routine Discharge)
Date of Disposition: 09/29/24
Time of Disposition: 18:59
Patient with high blood pressure during this ER visit?: No
Discharge Problem:
Atypical chest pain, History of breast CA, Mild hyperglycemia, Mild hypomagnesemia
Instructions: Chest pain
Prescriptions:
No Action
methotrexate sodium 2.5 MG tablet
10 mg PO @1800
Rx Instructions:
4 tablets, 2.5mg each on monday and monday to equal 8 tablets between the two days
metformin 1,000 MG tablet
1,000 mg PO BID@0800,1700
folic acid 1 MG tablet
3 mg PO DAILY
hydroxychloroquine 200 mg Tablet
400 mg PO DAILY
pantoprazole 40 mg Tablet,Delayed Release (Dr/Ec)
40 mg PO DAILY
pregabalin 100 mg Capsule
100 mg PO TID
ondansetron HCl 8 mg Tablet
8 mg PO Q8HPRN PRN (Reason: Nausea)
ezetimibe 10 mg Tablet
10 mg PO DAILY
Eliquis 5 mg Tablet
5 mg PO BID
docusate sodium [Colace] 100 mg Capsule
100 mg PO DAILY PRN (Reason: constipation)
lidocaine-prilocaine 2.5-2.5 % Cream
1 applic TOPICAL DAILYPRN PRN (Reason: port access)
prochlorperazine maleate 10 mg Tablet
10 mg PO BIDPRN PRN (Reason: nausea)
magnesium oxide 400 mg magnesium Tablet
800 mg PO DAILY
insulin aspart U-100 [Novolog FlexPen U-100 Insulin] 100 unit/mL (3 mL) Insulin Pen
10 unit SC AC Qty: 5 0RF
Rx Instructions:
10 units with every meal
insulin glargine [Lantus Solostar U-100 Insulin] 100 unit/mL (3 mL) Insulin Pen
30 unit SC BID Qty: 5 0RF
Rx Instructions:
30 units twice daily
Referrals:
Abraham Ackerman MD [Family Provider] - Follow up in 2-3 days
Activity Restrictions/Additional Instructions:
Tylenol for pain
Follow-up closely with your primary physician
Your blood sugar is mildly elevated and should be followed up
Your magnesium level is very minimally low but stable. Follow this up and possibly retest in a week or so
Interventions
Interventions:
*Risk Screen - Suicide Last Done: 09/29/24 15:14
*General Assessment Last Done: 09/29/24 15:55
*Neglect/Abuse Screening Last Done: 09/29/24 15:14
ED- Fall Risk Assessment Last Done: 09/29/24 15:57
*ED COVID-19 Vaccine History Last Done: 09/29/24 15:55
ED- Cardiac Assessment Last Done: 09/29/24 16:02
Discharge Date and Time
Print Language: ALBANIAN
[2024-09-29 17:05] LABS: Troponin I < 0.012 ng/ml
[2024-09-29 17:18] LABS: Magnesium 1.5 mg/dl (1.6-2.3)
[2024-09-29 18:38] VITALS: BP 107/51
--- NOTE | 2024-09-29 18:39 | EDRN ---
Dr. Herndon in to see pt.
--- NOTE | 2024-09-29 18:45 | EDRN ---
IV team in room to de-access R ACW port at this time.
[2024-09-29 19:00] VITALS: BP 108/63
== END 2024-09-29 19:22 | disposition home or self-care (01) ==
LOC: EMR 15:04
PROVIDERS: Emergency Medicine; EMERGENCY PHYSICIAN Emergency Medicine; FAMILY PHYSICIAN Family Medicine
DX: R07.89 Other chest pain (principal); E83.42 Hypomagnesemia; E11.65 Type 2 diabetes mellitus with hyperglycemia; C50.919 Malignant neoplasm of unspecified site of unspecified female breast; C79.9 Secondary malignant neoplasm of unspecified site; E78.00 Pure hypercholesterolemia, unspecified; F17.200 Nicotine dependence, unspecified, uncomplicated; M43.22 Fusion of spine, cervical region; Z79.4 Long term (current) use of insulin; Z88.5 Allergy status to narcotic agent; Z88.8 Allergy status to other drugs, medicaments and biological substances; Z91.048 Other nonmedicinal substance allergy status
CPT/HCPCS: 99285; 71275; 80053; 83735; 84484; 85025; 93005; Q9967

== ENCOUNTER → 2024-10-02 13:23 | Outpatient (REF) | payer OTHER, SELFPAY ==
[2024-10-02 14:11] LABS: % Basophils 0.8 % (0-2); % Eosinophils 4.5 % (0-6); % Lymphocytes 25.6 % (20.5-51.1); % Monocytes 4.3 % (1.7-9.3); % Neutrophils 63.8 % (42.2-75.2); Absolute Basophils 0.1 10^3/uL (0-0.2); Absolute Eosinophils 0.3 10^3/uL (0-0.7); Absolute Immature Granulocytes 0.1 10^3/uL (0-0.05); Absolute Lymphocytes 1.5 10^3/uL (1.2-3.4); Absolute Monocytes 0.3 10^3/uL (0.1-0.6); Absolute Neutrophils 3.8 10^3/uL (1.4-6.5); Hemoglobin 11.8 g/dL (12.0-16.0); Mean Corp Hgb Conc. 33.7 g/dL (33.0-37.0); Mean Corpuscular Hgb 34.3 pg (27.0-31.0); Mean Corpuscular Volume 101.7 fL (81.0-99.0); Mean Platelet Volume 8.8 fL (7.4-10.4); Platelet Count 302 10^3/uL (130-400); Red Blood Cell Count 3.44 10^6/uL (4.20-5.40); Red Cell Dist. Width 16.1 % (11.5-14.5)
[2024-10-02 15:08] LABS: ALT (SGPT) 20 U/L (0-35); AST (SGOT) 22 U/L (14-36); Albumin 4.2 g/dl (3.5-5.0); Alkaline Phosphatase 46 U/L (38-126); Blood Urea Nitrogen 14 mg/dl (7-17); Calcium 9.4 mg/dl (8.4-10.2); Carbon Dioxide 27 mmol/L (22-30); Chloride 101 mmol/L (98-107); Glucose 102 mg/dl (70-99); Magnesium 1.2 mg/dl (1.6-2.3); Sodium 138 mmol/L (135-145); Total Bilirubin 0.5 mg/dl (0.2-1.3); Total Protein 6.6 g/dl (6.3-8.2); eGFR > 60.00
== END ==
LOC: OIDL 13:23
PROVIDERS: ATTENDING PHYSICIAN Internal Medicine Hematology & Oncology; FAMILY PHYSICIAN Family Medicine
DX: C50.511 Malignant neoplasm of lower-outer quadrant of right female breast (principal); C50.411 Malignant neoplasm of upper-outer quadrant of right female breast
CPT/HCPCS: 36415; 80053; 83735; 85025

== ENCOUNTER → 2024-10-07 12:55 | Outpatient (REF) | payer OTHER, SELFPAY | LOC: RAD 12:55 | PROVIDERS: ATTENDING PHYSICIAN Internal Medicine Hematology & Oncology; FAMILY PHYSICIAN Family Medicine | DX: C50.511 Malignant neoplasm of lower-outer quadrant of right female breast (principal); C50.411 Malignant neoplasm of upper-outer quadrant of right female breast; C78.00 Secondary malignant neoplasm of unspecified lung | CPT/HCPCS: 71260; 74177; Q9967 ==

== ENCOUNTER → 2024-11-07 09:15 | Outpatient (REF) | payer MEDICARE, SELFPAY | LOC: RCS 09:15 | PROVIDERS: ATTENDING PHYSICIAN Nurse Practitioner Acute Care; FAMILY PHYSICIAN Family Medicine | DX: C50.511 Malignant neoplasm of lower-outer quadrant of right female breast (principal); C50.411 Malignant neoplasm of upper-outer quadrant of right female breast; C78.00 Secondary malignant neoplasm of unspecified lung | CPT/HCPCS: 93005 ==

== ENCOUNTER → 2024-11-22 13:27 | Outpatient (REF) | payer MEDICARE, SELFPAY ==
[2024-11-22 12:23] LABS: Hematocrit 31.6 % (37.0-47.0); Hemoglobin 10.5 g/dL (12.0-16.0); Mean Corp Hgb Conc. 33.2 g/dL (33.0-37.0); Mean Corpuscular Hgb 33.9 pg (27.0-31.0); Mean Corpuscular Volume 101.9 fL (81.0-99.0); Mean Platelet Volume 11.1 fL (7.4-10.4); Platelet Count 215 10^3/uL (130-400); Red Cell Dist. Width 16.4 % (11.5-14.5); White Blood Cell Count 1.2 10^3/uL (4.8-10.8)
[2024-11-22 12:43] LABS: ALT (SGPT) 24 U/L (0-35); AST (SGOT) 19 U/L (14-36); Alkaline Phosphatase 50 U/L (38-126); Blood Urea Nitrogen 17 mg/dl (7-17); Calcium 8.1 mg/dl (8.4-10.2); Carbon Dioxide 28 mmol/L (22-30); Chloride 97 mmol/L (98-107); Glucose 260 mg/dl (70-99); Magnesium 0.8 mg/dl (1.6-2.3); Potassium 4.3 mmol/L (3.5-5.1); Sodium 134 mmol/L (135-145); Total Protein 6.2 g/dl (6.3-8.2); eGFR > 60.00
[2024-11-22 13:13] LABS: % Basophils 1.7 % (0-2); % Eosinophils 3.3 % (0-6); % Immature Granulocytes 9.9 % (0-0.5); % Lymphocytes 43.8 % (20.5-51.1); % Monocytes 2.5 % (1.7-9.3); % Neutrophils 38.8 % (42.2-75.2); Absolute Immature Granulocytes 0.1 10^3/uL (0-0.05); Absolute Lymphocytes 0.5 10^3/uL (1.2-3.4); Nucleated Red Blood Cells % 0 %
[2024-11-22 14:10] LABS: Absolute Neutrophils 0.5 10^3/uL (1.4-6.5)
== END ==
LOC: OIDL 13:27
PROVIDERS: ATTENDING PHYSICIAN Internal Medicine Hematology & Oncology
DX: C50.511 Malignant neoplasm of lower-outer quadrant of right female breast (principal); C78.00 Secondary malignant neoplasm of unspecified lung
CPT/HCPCS: 80053; 83735; 85025

== ENCOUNTER 2024-12-27 21:35 | Inpatient (IN) | payer MEDICARE, SELFPAY ==
[2024-12-27 18:13] VITALS: BP 110/84
[2024-12-27] MEDS: NSS 1000 IV ×2 (18:45→23:51)
--- NOTE | 2024-12-27 18:53 | ED.GENMED ---
History of Present Illness
General
Chief Complaint: Cardiac Symptoms
Source: patient
Exam Limitations: none
Time Seen by Provider: 12/27/24 18:30
History of Present Illness
History of Present Illness:
64-year-old female with history of breast and lung cancer on Eliquis currently receiving chemo presents with onset of chest pain earlier today. The constant discomfort in center of her chest. She also notes arm and leg pain. She notes she had
very similar symptoms 1 month ago. She had a full workup then including CT scan which was negative. Her thinks this may be due to low magnesium which she is prone to with her chemotherapy. No hemoptysis. No travel. No leg swelling or
calf pain. Pain is not pleuritic. No other complaints at this time. She notes no significant prolonged relief with nitroglycerin use at home
Past History
Past History
ED Past Medical History: Cancer, Hypercholesterolemia, IDDM and Other
ED Past Surgical History: Gynecological (Partial hysterectomy) and Orthopedic (Cervical spine fusion ); Negative Cardiac
Social History
Tobacco: Smoker
Alcohol: Occasional
Drug: None
Personal:
Living: with family
Employment: Employed
Family History
Family History: Hypertension
Phy Exam
Physical Exam
Physical Exam:
General: Well-appearing female no acute respiratory distress
HEENT: Normocephalic atraumatic
Heart: Regular rate and rhythm
Lungs: Clear no wheeze abdomen is soft nontender nondistended no guarding rebound normal bowel sounds
Extremities: No cyanosis or edema
Skin: Warm no rash
Course
Orders/Labs/Results
Orders:
Orders
12/27/24 18:09
EKG [Electrocardiogram (*1)] Urgent
Reason for Study: Chest Pain
12/27/24 18:10
EKG- Treatment ONCE
12/27/24 18:43
0.9% Sodium Chloride 1000 ml [Nss] 1,000 ml IV BOLUS
CR Chest - 2 Views Urgent
Comment:
Reason For Exam: chest pain
12/27/24 18:46
Complete Blood Count/With Diff Urgent
Comprehensive Metabolic Panel Urgent
Magnesium Urgent
Manual Differential Urgent
Troponin I Urgent
12/27/24 20:00
Magnesium Sulfate 4 Gram/100Ml [Magnesium Sulfate] 4 gram in 100 ml IV NOW
Abnormal Lab Results
12/27/24
18:46
WBC 63.4 H* 10^3/uL
(4.8-10.8)
RBC 3.28 L 10^6/uL
(4.20-5.40)
Hgb 11.2 L g/dL
(12.0-16.0)
Hct 33.5 L %
(37.0-47.0)
MCV 102.1 H fL
(81.0-99.0)
MCH 34.1 H pg
(27.0-31.0)
RDW 17.6 H %
(11.5-14.5)
Abs Neuts (Manual) 55.1 H 10^3/uL
(1.4-6.5)
Segmented Neutrophils 79 H %
(42-75)
Band Neutrophils 8 H %
(0-3)
Lymphocytes (Manual) 4 L %
(20-51)
Sodium 132 L mmol/L
(135-145)
BUN 18 H mg/dl
(7-17)
Creatinine 1.1 H mg/dL
(0.6-1.0)
Glucose 312 H mg/dl
(70-99)
Magnesium 0.7 L* mg/dl
(1.6-2.3)
Total Protein 6.0 L g/dl
(6.3-8.2)
12/27/24 18:46
12/27/24 18:46
Vital Signs
Initial and Last Documented VS:
Initial Vital Signs
Temp Pulse Resp BP Pulse Ox
98.2 F 112 20 110/84 96
12/27/24 18:13 12/27/24 18:13 12/27/24 18:13 12/27/24 18:13 12/27/24 18:13
Last Documented Vital Signs
Temp Pulse Resp BP Pulse Ox
98.2 F 112 20 110/84 96
12/27/24 18:13 12/27/24 18:13 12/27/24 18:13 12/27/24 18:13 12/27/24 18:13
MDM/Problems Addressed
Differential Diagnosis Includes:
Chest pain. Consider ACS versus PE versus dissection. Patient had similar symptoms 1 to 2 months ago and workup was negative. She is anticoagulated. Unlikely to be a pulmonary embolism. EKG shows sinus rhythm without obvious ischemic changes.
Troponin pending. Chest x-ray pending.
*Critical Care Note
Total Time (30-74mins, 75-104mins- exclusive of procedures): Not Applicable
Update Note
Update Note:
Troponin undetectable. Chest x-ray does not show any widened mediastinum. Unlikely to be PE secondary to anticoagulated status. Magnesium is 0.7. Review of her chart does show that she has been admitted in the past for hypomagnesemia. 4 g IV
magnesium ordered. Discussed with ED attending. Will admit
White blood cell 64,000 likely secondary to recent injection she received with chemotherapy
ED Attending Note
-
Portions of this chart may have been created with voice recognition software.� Occasional wrong word or��sound alike� substitutions may have occurred due to the inherent limitations of voice recognition software.
Discharge Plan
Departure
Patient Disposition: Admit
Date of Disposition: 12/27/24
Time of Disposition: 20:03
Presentation/result/management discussed w/ accepting MD/DO: Hospitalist
Discharge Problem:
Hypomagnesemia
Prescriptions:
No Action
methotrexate sodium 2.5 MG tablet
10 mg PO @1800
Rx Instructions:
4 tablets, 2.5mg each on monday and monday to equal 8 tablets between the two days
metformin 1,000 MG tablet
1,000 mg PO BID@0800,1700
folic acid 1 MG tablet
3 mg PO DAILY
hydroxychloroquine 200 mg Tablet
400 mg PO DAILY
pantoprazole 40 mg Tablet,Delayed Release (Dr/Ec)
40 mg PO DAILY
pregabalin 100 mg Capsule
100 mg PO TID
ondansetron HCl 8 mg Tablet
8 mg PO Q8HPRN PRN (Reason: Nausea)
ezetimibe 10 mg Tablet
10 mg PO DAILY
Eliquis 5 mg Tablet
5 mg PO BID
docusate sodium [Colace] 100 mg Capsule
100 mg PO DAILY PRN (Reason: constipation)
lidocaine-prilocaine 2.5-2.5 % Cream
1 applic TOPICAL DAILYPRN PRN (Reason: port access)
prochlorperazine maleate 10 mg Tablet
10 mg PO BIDPRN PRN (Reason: nausea)
magnesium oxide 400 mg magnesium Tablet
800 mg PO DAILY
insulin aspart U-100 [Novolog FlexPen U-100 Insulin] 100 unit/mL (3 mL) Insulin Pen
10 unit SC AC Qty: 5 0RF
Rx Instructions:
10 units with every meal
insulin glargine [Lantus Solostar U-100 Insulin] 100 unit/mL (3 mL) Insulin Pen
30 unit SC BID Qty: 5 0RF
Rx Instructions:
30 units twice daily
Referrals:
Abraham Ackerman MD [Family Provider] -
Interventions
Interventions:
*General Assessment Last Done: 12/27/24 18:13
Discharge Date and Time
Print Language: BARBADIAN
[2024-12-27 19:14] LABS: ALT (SGPT) 15 U/L (0-35); AST (SGOT) 16 U/L (14-36); Albumin 3.8 g/dl (3.5-5.0); Alkaline Phosphatase 121 U/L (38-126); Blood Urea Nitrogen 18 mg/dl (7-17); Calcium 8.5 mg/dl (8.4-10.2); Carbon Dioxide 22 mmol/L (22-30); Chloride 99 mmol/L (98-107); Glucose 312 mg/dl (70-99); Magnesium 0.7 mg/dl (1.6-2.3); Potassium 3.6 mmol/L (3.5-5.1); Sodium 132 mmol/L (135-145); Total Bilirubin 0.3 mg/dl (0.2-1.3); eGFR 55.76
[2024-12-27 19:16] LABS: Troponin I < 0.012 ng/ml
[2024-12-27 19:34] LABS: Hematocrit 33.5 % (37.0-47.0); Hemoglobin 11.2 g/dL (12.0-16.0); Mean Corp Hgb Conc. 33.4 g/dL (33.0-37.0); Mean Corpuscular Hgb 34.1 pg (27.0-31.0); Mean Corpuscular Volume 102.1 fL (81.0-99.0); Mean Platelet Volume 9.5 fL (7.4-10.4); Platelet Count 297 10^3/uL (130-400); Red Blood Cell Count 3.28 10^6/uL (4.20-5.40); Red Cell Dist. Width 17.6 % (11.5-14.5); White Blood Cell Count 63.4 10^3/uL (4.8-10.8)
[2024-12-27 19:41] LABS: Absolute Neutrophils -Man Diff 55.1 10^3/uL (1.4-6.5); Band Neutrophils 8 % (0-3); Eosinophils 1 % (0-6); Lymphocytes 4 % (20-51); Metamyelocytes 2 % (-); Monocytes 6 % (2-9); Platelets Checked Yes; Segmented Neutrophils 79 % (42-75)
[2024-12-27 19:43] LABS: Anisocytosis Slight; Normal RBC Morphology No
[2024-12-27 19:44] LABS: Macrocytosis 3+; Polychromasia Slight; Total Cells Counted 100
[2024-12-27] MEDS: MAGNESIUM SULFATE 100 IV (20:11)
--- NOTE | 2024-12-27 20:12 | HPS.HSE ---
Addendum entered and electronically signed by Krish Lorenzo DO 12/27/24 22:34:
Patient seen and examined independently. Agree with findings and plan as set forth by Zeny Carreno PA-C.
Patient is a 64y F with PMH significant for metastatic breast cancer on chemo, hypertension and DM-II who presents to ED complaining of chest discomfort and diffuse muscle aches. Patient states that muscle aches have been present for about one
week. She has had similar symptoms in the past related to hypomagnesemia. Evaluation in the ED does confirm low magnesium level.
Ass:
Severe Symptomatic Hypomagnesemia
VEIE
Leukocytosis s/p GCSF
Metastatic Breast Cancer on Chemotherapy
Benign Hypertension
DM-II
Lupus / Rheumatoid Arthritis
GERD
History of Pulmonary Embolism
Plan:
Admit for further evaluation and treatment.
Magnesium replacement and follow for improved level / improvement in symptoms.
Discontinue PPI. Replace with H2 brandy for now.
Follow for increased symptoms of heartburn / reflux.
Hold metformin.
IVFs overnight.
Continue other usual medications.
Original Note:
Family Physician
-
Family Physician: Abraham Ackerman
Chief Complaint
-
Muscle Pains
History of Present Illness
Patient is a 64y/o female past medical history of metastatic breast cancer, diabetes mellitus, hypertension, hyperlipidemia, lupus and rheumatoid arthritis who presents with chest pain and muscle pains. Patient reports symptoms are very similar to
when she had low magnesium last month related to her chemotherapy. Patient reports last chemotherapy was on December 18, and she received Neulasta on December 24.
Medical History
Past Medical History
Past Medical History: Reports Other
Additional Past Medical History:
Metastatic Breast Cancer
Diabetes Mellitus, Type II
Essential Hypertension
Hyperlipidemia
Pulmonary Embolism
Lupus
Rheumatoid Arthritis
GERD
Past Surgical History: Reports Other
Additional Past Surgical History:
Right Mastectomy
Oophorectomy
Cervical Fusion
Right Rotator Cuff Repair
Social History
Tobacco: Smoker (Half a pack a day)
Alcohol: None
Drug: None
Personal:
Living: With Family
Family History
Family History: Not pertinent
Allergies / Home Medications
Allergies reflects when Allergies were last updated in [facility].
Home Medications with original date entered in [facility]
Allergy/Medication List:
Allergies
Allergy/AdvReac Type Severity Reaction Status Date / Time
adhesive Allergy Rash/REDNES Verified 12/27/24 20:01
S
codeine Allergy Nausea / Verified 12/27/24 18:13
Vomiting
simvastatin Allergy MYALGIA Verified 12/27/24 18:13
Aajahtf-TSC-OfH Reductase Allergy MYALGIA Verified 12/27/24 18:13
Inhibitor
[Hpblitl-Uhj-Grs Reductase
Inhibitor]
Home Medications
folic acid 1 mg tablet 3 mg PO DAILY Supplement 07/27/20
metformin 1,000 mg tablet 1,000 mg PO BID@0800,1700 Diabetes 07/27/20
methotrexate sodium 2.5 mg tablet 10 mg PO TUWE@1800 arthritis 07/27/20
hydroxychloroquine 200 mg tablet 400 mg PO DAILY LUPUS 06/29/22
pantoprazole 40 mg tablet,delayed release 40 mg PO DAILY Gastrointestinal Issue 01/29/24
pregabalin 100 mg capsule 100 mg PO TID Mental Health/Anxiety 01/29/24
apixaban 5 mg tablet (Eliquis) 5 mg PO BID Blood Clot Prevention/Tx 07/09/24
ezetimibe 10 mg tablet 10 mg PO DAILY High Cholesterol 07/09/24
ondansetron HCl 8 mg tablet 8 mg PO Q8HPRN PRN Nausea 07/09/24
docusate sodium 100 mg capsule (Colace) 100 mg PO DAILY PRN constipation 08/05/24
lidocaine-prilocaine 2.5 %-2.5 % topical cream 1 applic topical DAILYPRN PRN port access 08/05/24
magnesium oxide 800 mg PO DAILY Supplement 09/09/24
prochlorperazine maleate 10 mg tablet 10 mg PO BIDPRN PRN nausea 09/09/24
insulin glargine 100 unit/mL (3 mL) subcutaneous pen (Lantus Solostar U-100 Insulin) 30 unit (0.3 mL) SC BID #5 ea 09/13/24
acetaminophen 500 mg tablet 1,000 mg PO Q6HPRN PRN MILD PAIN 12/27/24
ibuprofen 200 mg tablet 200 mg PO Q6HPRN PRN MILD PAIN 12/27/24
insulin lispro 100 unit/mL subcutaneous pen 10 unit SC PC 12/27/24
Review of Systems
-
A 12 point ROS was completed and negative except as noted: Yes
Constitutional: Denies Fever or Chills
Respiratory: Denies Cough or Trouble Breathing
Cardiac: Denies Chest Pain or Palpitations
Physical Exam
Vital Signs
Vital Signs
Temp Pulse Resp BP Pulse Ox
98.2 F 112 20 110/84 96
12/27/24 18:13 12/27/24 18:13 12/27/24 18:13 12/27/24 18:13 12/27/24 18:13
Physical Exam
General: Comfortable and Conversant
HEENT: Anicteric, Moist mucous membranes and Other (Poor Dentition)
Respiratory: Rales (Bilateral Bases)
Cardiac: S1/S2 and Regular Rhythm
GI: Soft and Non Tender
Rectal: Deferred by Provider
Musculoskeletal: No Clubbing, No Cyanosis and No Edema
Skin: Warm and Dry
Neuro: Awake, Alert, Oriented and Nonfocal/grossly intact
Psych: Calm
Laboratory Results
-
12/27/24 18:46
12/27/24 18:46
Laboratory Results
Total Bilirubin 0.3 mg/dl (0.2-1.3) 12/27/24 18:46
AST 16 U/L (14-36) 12/27/24 18:46
ALT 15 U/L (0-35) 12/27/24 18:46
Alkaline Phosphatase 121 U/L (38-126) 12/27/24 18:46
Troponin I < 0.012 ng/ml 12/27/24 18:46
Data Reviewed
-
Lab Data: Labs Reviewed by me
Impression/Plan
-
Acute / Severe Hypomagnesemia
-Continue magnesium replacement
-Recheck magnesium level later this evening
Acute Kidney Injury
-Hold Metformin
-Give IVFs overnight
-Recheck labs in AM
Leukocytosis, likely related to recent Neulasta
-Monitor for signs of infection
-Continue to trend
Metastatic Breast Cancer
-Last chemotherapy December 18
Diabetes Mellitus, Type II
-Continue glargine and lispro
-Hold metformin due to EVIE
-Monitor sugars and continue coverage insulin
Essential Hypertension
Hyperlipidemia
-Continue Zetia
Lupus
-Continue hydroxychloroquine
Rheumatoid Arthritis
-Continue methotrexate and folic acid
GERD
-Continue Protonix
Hx Pulmonary Embolism
-Continue Eliquis
Code Status: Full Code
[2024-12-27 22:20] VITALS: BP 111/63; BMI 25.8
[2024-12-27 23:01] LABS: Glucose - Point of Care 237 mg/dl (70-99)
[2024-12-27] MEDS: LYRICA 100 MG PO (23:51)
[2024-12-28] VITALS (7 sets, daily range): BP systolic 93–124; BP diastolic 60–94; PULSE 85; O2SAT 96
[2024-12-28 01:02] LABS: Magnesium 2.3 mg/dl (1.6-2.3)
[2024-12-28 07:29] LABS: Glucose - Point of Care 298 mg/dl (70-99)
[2024-12-28] MEDS: NOVOLOG FLEXPEN 8 UNITS SC ×3 (07:48→16:32)
[2024-12-28] MEDS: NOVOLOG FLEXPEN-MODERATE RESISTANCE 5 UNITS SC (07:49)
[2024-12-28] MEDS: NSS (PRESERVATIVE FREE) 8 ML IV (07:50)
[2024-12-28] MEDS: PEPCID 20 MG IV (07:50)
[2024-12-28] MEDS: ZETIA 10 MG PO (07:51)
[2024-12-28] MEDS: ELIQUIS 5 MG PO ×2 (07:51→21:02)
[2024-12-28] MEDS: FOLVITE 1 MG PO (07:51)
[2024-12-28] MEDS: PLAQUENIL 400 MG PO (07:51)
[2024-12-28] MEDS: LYRICA 100 MG PO ×3 (07:51→21:02)
[2024-12-28] MEDS: LANTUS 0.3 UNITS SC ×2 (07:51→21:02)
[2024-12-28 08:47] LABS: Hematocrit 32.2 % (37.0-47.0); Hemoglobin 10.8 g/dL (12.0-16.0); Mean Corp Hgb Conc. 33.5 g/dL (33.0-37.0); Mean Corpuscular Hgb 34.6 pg (27.0-31.0); Mean Corpuscular Volume 103.2 fL (81.0-99.0); Mean Platelet Volume 9.6 fL (7.4-10.4); Platelet Count 271 10^3/uL (130-400); Red Blood Cell Count 3.12 10^6/uL (4.20-5.40); Red Cell Dist. Width 17.6 % (11.5-14.5); White Blood Cell Count 67.4 10^3/uL (4.8-10.8)
--- NOTE | 2024-12-28 09:34 | W.PN.HOSP.TC ---
Today's Communication/Plan
-
cardiology evaluation for chest pain history
lower rate of IVF
Await blood work ( BMP)
Assessment / Plan
Assessment / Plan
Physical Exam
General: Comfortable and Conversant. Chronically ill looking
HEENT: Anicteric, Moist mucous membranes, pale mucous membrane and Other (Poor Dentition)
Respiratory: No wheezes. Limited air entry
Cardiac: S1/S2
GI: Soft and Non Tender
Rectal: No bleed
Musculoskeletal: No joint
Skin: Warm and Dry
Neuro: Awake, Alert, Oriented and Nonfocal/grossly intact, she followed commands
Psych: Calm
Acute / Severe Hypomagnesemia
resolved with replacement
Lab is pending today
# Chest discomfort
She described as heaviness in the chest last for a while then resolved spontaneously. No diaphoresis or shortness of breath.
EKG showed sinus rhythm with nonspecific T wave abnormality in lateral leads
Patient reports that she had a stress test more than a year ago with Dr. Kirkland, was normal per patient
YUVAL study in September 2024 showed LVEF 55 to 60%, echodensity on lateral wall of right atrium detected. For which the patient is on Eliquis ( per pt) for possible right atrium clot.
Acute Kidney Injury
-Hold Metformin
-Give IVFs overnight
-Recheck labs in AM
# Hyponatremia, mild
#Leukocytosis, post Neulasta treat
No fever. Clinically does not look toxic or in distress
Metastatic Breast Cancer
-Last chemotherapy December [address] Dyer.
Diabetes Mellitus, Type II
-Continue glargine and lispro
-Hold metformin due to EVIE
-Monitor sugars and continue coverage insulin
# Anemia of chronic disease secondary to cancer/and chemotherapy
#Essential Hypertension
Hyperlipidemia
-Continue Zetia
Lupus
-Continue hydroxychloroquine
Rheumatoid Arthritis
-Continue methotrexate and folic acid
GERD
-Continue Protonix
Hx Pulmonary Embolism
-Continue Eliquis
Code Status: Full Code
Total time spent to see the patient, examine the patient, review data and lab results, discuss treatment plan with patient and nursing staff around 59 minutes
Anticipated Discharge: 24 - 48 hours
Subjective/Interval History
-
Date of Service: December 28, 2024
Objective Data
-
Labs:
Laboratory Results
12/28/24
07:44
WBC 67.4 H*
Hgb 10.8 L
Hct 32.2 L
Plt Count 271
Sodium Pending
Potassium Pending
Chloride Pending
Carbon Dioxide Pending
BUN Pending
Creatinine Pending
Glucose Pending
Calcium Pending
Vital Signs:
Vital Signs
Temp Pulse Resp BP Pulse Ox
97.8 F 83 16 115/65 93
12/28/24 07:40 12/28/24 07:40 12/28/24 07:40 12/28/24 07:40 12/28/24 09:12
I&O
12/27/24 12/28/24 12/29/24
06:59 06:59 07:59
Intake Total 240 / 240
Balance 240 / 240
[2024-12-28 09:43] LABS: Blood Urea Nitrogen 13 mg/dl (7-17); Calcium 8.6 mg/dl (8.4-10.2); Carbon Dioxide 26 mmol/L (22-30); Chloride 97 mmol/L (98-107); Estimated Creatinine Clearance 71 ml/min; Glucose 251 mg/dl (70-99); Magnesium 1.8 mg/dl (1.6-2.3); Potassium 3.5 mmol/L (3.5-5.1); Sodium 135 mmol/L (135-145); eGFR > 60.00
[2024-12-28 09:56] LABS: Glycohemoglobin (HgbA1c) 8.4 % (4.0-5.6)
[2024-12-28] MEDS: MAGNESIUM OXIDE 500 MG PO ×2 (10:13→21:02)
[2024-12-28 11:40] LABS: Glucose - Point of Care 194 mg/dl (70-99)
[2024-12-28] MEDS: NSS 1000 IV (11:42)
[2024-12-28] MEDS: NOVOLOG FLEXPEN-MODERATE RESISTANCE 1 UNITS SC ×2 (11:43→16:32)
--- NOTE | 2024-12-28 12:36 | CON.CAR ---
Consultation
Consultation Request
Date/Time Consultation Requested: 12/28/2024
Date/Time Consultation Performed: 12/28/2024
Requesting Provider: Dr. Srivastava
Performing Provider: Dr. Miner
Reason for Consultation: Chest pain
Medical History
-
Chief Complaint: Chest pain
History of Present Illness:
63-year-old female (primarily known to Dr. Kirkland; last evaluated in office 09/29/2024) with metastatic breast cancer (to lung) who is currently undergoing chemotherapy, right atrial mass (suspected thrombus; on Eliquis), hyperlipidemia
(statin-intolerant), diabetes, rheumatoid arthritis, lupus, and chronic continued cigarette use presenting with chest pain and muscle pains (arms and legs). She had chemotherapy on 12/18/2024 and received Neulasta on 12/24/24. The chest pain started
yesterday, and has been essentially constant, with some mild improvement. She denies shortness of breath. She continues to smoke approximately 1/2 pack cigarettes daily.
Past Medical History
Past Medical History: Cancer (Metastatic breast), Hypercholesterolemia and IDDM
Past Surgical History: Gynecological (Partial hysterectomy) and Orthopedic (Cervical spine fusion)
Social History
Tobacco: Smoker
Alcohol: Occasional
Drug: None
Personal:
Living: With Family
Family History
Family History: Reviewed & Not Pertinent
Allergies / Home Medications
Allergy/AdvReac Type Severity Reaction Status Date / Time
adhesive Allergy Rash/REDNES Verified 12/27/24 20:01
S
codeine Allergy Nausea / Verified 12/27/24 18:13
Vomiting
simvastatin Allergy MYALGIA Verified 12/27/24 18:13
Svmkdwu-CQC-NmK Reductase Allergy MYALGIA Verified 12/27/24 18:13
Inhibitor
[Tqgeevx-Abm-Ydr Reductase
Inhibitor]
�Medication �Instructions �Recorded �Confirmed �Type
folic acid 1 mg tablet 1 mg PO DAILY Supplement 07/27/20 12/27/24 History
metformin 1,000 mg tablet 1,000 mg PO BID Diabetes 07/27/20 12/27/24 History
methotrexate sodium 2.5 mg tablet 10 mg PO TUWE arthritis 07/27/20 12/27/24 History
hydroxychloroquine 200 mg tablet 400 mg PO DAILY LUPUS 06/29/22 12/27/24 History
pantoprazole 40 mg tablet,delayed 40 mg PO DAILY Gastrointestinal 01/29/24 12/27/24 History
release Issue
pregabalin 100 mg capsule 100 mg PO TID Mental Health/Anxiety 01/29/24 12/27/24 History
apixaban 5 mg tablet (Eliquis) 5 mg PO BID Blood Clot 07/09/24 12/27/24 History
Prevention/Tx
ezetimibe 10 mg tablet 10 mg PO DAILY High Cholesterol 07/09/24 12/27/24 History
ondansetron HCl 8 mg tablet 8 mg PO Q8HPRN PRN Nausea 07/09/24 12/27/24 History
docusate sodium 100 mg capsule 100 mg PO DAILYPRN PRN constipation 08/05/24 12/27/24 History
(Colace)
lidocaine-prilocaine 2.5 %-2.5 % 1 applic topical DAILYPRN PRN port 08/05/24 12/27/24 History
topical cream access
magnesium oxide 400 mg PO DAILY Supplement 09/09/24 12/27/24 History
prochlorperazine maleate 10 mg 10 mg PO BIDPRN PRN nausea 09/09/24 12/27/24 History
tablet
insulin glargine 100 unit/mL (3 30 unit (0.3 mL) SC BID #5 ea 09/13/24 12/27/24 Rx
mL) subcutaneous pen (Lantus
Solostar U-100 Insulin)
acetaminophen 500 mg tablet 1,000 mg PO Q6HPRN PRN MILD PAIN 12/27/24 12/27/24 History
ibuprofen 200 mg tablet 200 mg PO Q6HPRN PRN MILD PAIN 12/27/24 12/27/24 History
insulin lispro 100 unit/mL 10 unit SC PC 12/27/24 12/27/24 History
subcutaneous pen
Review of Systems
-
All other systems: Negative unless noted
Musculoskeletal: Joint Pain
Physical Exam
Vital Signs
Temp Pulse Resp BP Pulse Ox
97.8 F 79 17 123/94 92
12/28/24 11:23 12/28/24 11:23 12/28/24 11:23 12/28/24 11:23 12/28/24 11:23
Lab Results
12/28/24 07:44
12/28/24 07:44
Troponin I < 0.012 ng/ml 12/27/24 18:46
Physical Exam
General: No Apparent Distress and Comfortable
HEENT: Anicteric
Respiratory: Clear
Cardiac: S1/S2, Regular Rhythm and Murmur (Soft 2/6 systolic)
Breast: Deferred by me
GI: Soft
Rectal: Deferred by Provider
Musculoskeletal: No Edema
Skin: Warm and Dry
Neuro: AO x 3
Psych: Calm
Impression / Plan
-
63-year-old female (primarily known to Dr. Kirkland; last evaluated in office 09/29/2024) with metastatic breast cancer (to lung) who is currently undergoing chemotherapy, right atrial mass (suspected thrombus; on Eliquis), hyperlipidemia
(statin-intolerant), diabetes, rheumatoid arthritis, lupus, and chronic continued cigarette use presenting with chest pain and muscle pains (arms and legs). She had chemotherapy on 12/18/2024 and received Neulasta on 12/24/24. The chest pain started
yesterday, and has been essentially constant, with some mild improvement. She denies shortness of breath. She continues to smoke approximately 1/2 pack cigarettes daily.
Chest pain:
-The patient has markedly reproducible midsternal chest pain to palpation consistent with musculoskeletal etiology (costochondritis).
-Cardiac enzymes are negative; no acute findings on EKG.
-Recommend NSAIDs and warm compresses.
-Although patient appears to be at increased risk for CAD, this presentation is inconsistent with ACS (patient likely would have been managed conservatively anyway, given comorbidities and current metastatic breast cancer on chemotherapy).
Hypomagnesemia:
-Magnesium was low at 0.7, but has now been repleted.
Metastatic breast cancer:
-Patient is currently undergoing chemotherapy.
-Recently received Neulasta a few days ago, which is likely cause of her significantly elevated WBC.
Right atrial mass/thrombus:
-Continue Eliquis.
Hyperlipidemia:
-Continue Zetia; statin-intolerant.
Disposition: Patient can follow-up with Cardiology as an outpatient; no further cardiac recommendations at this time.
Data Reviewed
-
EKG: Tracing Personally Visualized and interpreted (Sinus tachycardia with nonspecific T wave abnormality.)
Medical Tests (Nuc Med, Echo etc): Report Reviewed by me (YUVAL 09/23/2024: LVEF 55-60%; there remains a mobile polypoid echodensity attached to the lateral wall of the right atrium (1.4 cm x 1.4 cm).)
Labs: Labs Reviewed by me
[2024-12-28 16:20] LABS: Glucose - Point of Care 191 mg/dl (70-99)
[2024-12-28 21:41] LABS: Glucose - Point of Care 218 mg/dl (70-99)
[2024-12-29] MEDS: NSS 1000 IV (01:26)
[2024-12-29 03:00] VITALS: BP 128/72
[2024-12-29 07:25] VITALS: BP 124/70
[2024-12-29 07:30] LABS: Glucose - Point of Care 183 mg/dl (70-99)
[2024-12-29] MEDS: NOVOLOG FLEXPEN 8 UNITS SC ×2 (08:02→12:02)
[2024-12-29] MEDS: NOVOLOG FLEXPEN-MODERATE RESISTANCE 1 UNITS SC ×2 (08:04→12:03)
[2024-12-29] MEDS: MAGNESIUM OXIDE 500 MG PO (08:04)
[2024-12-29] MEDS: ZETIA 10 MG PO (08:05)
[2024-12-29] MEDS: ELIQUIS 5 MG PO (08:05)
[2024-12-29] MEDS: FOLVITE 1 MG PO (08:05)
[2024-12-29] MEDS: LYRICA 100 MG PO (08:05)
[2024-12-29] MEDS: PLAQUENIL 400 MG PO (08:05)
[2024-12-29] MEDS: PEPCID 20 MG IV (08:05)
[2024-12-29] MEDS: NSS (PRESERVATIVE FREE) 8 ML IV (08:06)
[2024-12-29] MEDS: LANTUS 0.3 UNITS SC (08:07)
[2024-12-29 09:59] LABS: Blood Urea Nitrogen 10 mg/dl (7-17); Calcium 8.6 mg/dl (8.4-10.2); Carbon Dioxide 27 mmol/L (22-30); Chloride 102 mmol/L (98-107); Estimated Creatinine Clearance 81 ml/min; Glucose 245 mg/dl (70-99); Potassium 3.9 mmol/L (3.5-5.1); Sodium 136 mmol/L (135-145); eGFR > 60.00
--- NOTE | 2024-12-29 10:35 | W.PN.HOSP.TC ---
Today's Communication/Plan
-
discharge
Assessment / Plan
Assessment / Plan
Physical Exam
General: Comfortable and Conversant. Chronically ill looking
HEENT: Anicteric, Moist mucous membranes, pale mucous membrane and Other (Poor Dentition)
Respiratory: No wheezes. Limited air entry
Cardiac: S1/S2
GI: Soft and Non Tender
Rectal: No bleed
Musculoskeletal: No joint
Skin: Warm and Dry
Neuro: Awake, Alert, Oriented and Nonfocal/grossly intact, she followed commands
Psych: Calm
Acute / Severe Hypomagnesemia
resolved with replacement
c/w oral Mg oxide.
# Chest discomfort
She described as heaviness in the chest last for a while then resolved spontaneously. No diaphoresis or shortness of breath.
She was evaluated by accountant tax, discomfort consistent with musculoskeletal. No changes recommended to her regimen.
EKG showed sinus rhythm with nonspecific T wave abnormality in lateral leads
Patient reports that she had a stress test more than a year ago with Dr. Kirkland, was normal per patient
YUVAL study in September 2024 showed LVEF 55 to 60%, echodensity on lateral wall of right atrium detected. For which the patient is on Eliquis ( per pt) for possible right atrium clot.
Acute Kidney Injury
Resolved
# Hyponatremia, mild. No confusion
# History of vertigo
She declined meclizine
#Leukocytosis, post Neulasta treatment.
No fever. Clinically does not look toxic or in distress
Metastatic Breast Cancer
-Last chemotherapy December 18.
I updated Primary oncologist office
Primary oncologist Dr. Dyer.
Diabetes Mellitus, Type II
-Continue glargine and lispro
-Hold metformin due to EVIE
-Monitor edsugars and continue coverage insulin
# Anemia of chronic disease secondary to cancer/and chemotherapy
#Essential Hypertension
Hyperlipidemia
-Continue Zetia
Lupus
-Continue hydroxychloroquine
Rheumatoid Arthritis
-Continue methotrexate and folic acid
GERD
-Continue Protonix
Hx Pulmonary Embolism
-Continue Eliquis
Code Status: Full Code
Patient declined home health services
Total discharge time spent to see the patient, examine the patient, review data and lab results, discuss discharge plan with patient and nursing staff around 65 minutes
Anticipated Discharge: Today
Subjective/Interval History
-
Date of Service: December 29, 2024
She is doing well, slightly dizzy but feels able to walk and wants to go home
No chest pain
Tolerating diet well
Objective Data
-
Labs:
Laboratory Results
12/29/24
09:33
Sodium 136
Potassium 3.9
Chloride 102
Carbon Dioxide 27
BUN 10
Creatinine 0.7
Glucose 245 H
Calcium 8.6
Vital Signs:
Vital Signs
Temp Pulse Resp BP Pulse Ox
97.6 F 84 17 124/70 98
12/29/24 07:25 12/29/24 07:25 12/29/24 07:25 12/29/24 07:25 12/29/24 07:25
I&O
12/28/24 12/29/24 12/30/24
05:59 06:59 06:59
Intake Total
Balance
[2024-12-29 11:00] VITALS: BP 144/77
[2024-12-29 11:24] LABS: Glucose - Point of Care 169 mg/dl (70-99)
--- NOTE | 2024-12-29 11:48 | VATNOTE ---
deaccessed right sub q port per protocol. brisk blood return noted prior to.
--- NOTE | 2024-12-29 13:23 | W.DCSUMMARY ---
Discharge Summary
Discharge Data
Date of Admission: 12/27/24
Date of Discharge: 12/29/24
-
Pending Results: No
Hospital Course
64 years old female who was currently undergoing chemotherapy presented to the hospital with chest discomfort, muscle pains. Patient reported weakness since her last chemotherapy. Patient had low magnesium level. She was given intravenous fluid
and intravenous magnesium. She had negative troponin. She was evaluated by disc pad plate filler and felt pain was mostly musculoskeletal. Patient had Neulasta and she had leukocytosis. She did not have fever. She had mild hyponatremia that later
resolved with IV fluid. Patient was able to tolerate oral diet. She was advised to increase dose of oral magnesium to twice a day. Patient was evaluated by physical therapy and did not have skilled needs. Patient declined home health services.
She she remained hemodynamically stable and was discharged in a stable condition.
Discharge Plan
-
Patient Disposition: Home (Routine Discharge)
Discharge Diagnosis/Procedures: Chest discomfort, you were seen by disc pad plate filler. No evidence of cardiac ischemia.
Hypomagnesemia, replaced and resolved. You can take oral magnesium twice a day.
Dehydration/renal insufficiency, resolved with IV fluid
Diet: Diabetic, Carb Controlled
Referrals:
Abraham Ackerman MD [Family Provider] - in one to two weeks
Prescriptions:
Continued
methotrexate sodium 2.5 MG tablet
10 mg PO
metformin 1,000 MG tablet
1,000 mg PO BID
folic acid 1 MG tablet
1 mg PO DAILY
hydroxychloroquine 200 mg Tablet
400 mg PO DAILY
pantoprazole 40 mg Tablet,Delayed Release (Dr/Ec)
40 mg PO DAILY
pregabalin 100 mg Capsule
100 mg PO TID
ondansetron HCl 8 mg Tablet
8 mg PO Q8HPRN PRN (Reason: Nausea)
ezetimibe 10 mg Tablet
10 mg PO DAILY
Eliquis 5 mg Tablet
5 mg PO BID
docusate sodium [Colace] 100 mg Capsule
100 mg PO DAILYPRN PRN (Reason: constipation)
lidocaine-prilocaine 2.5-2.5 % Cream
1 applic TOPICAL DAILYPRN PRN (Reason: port access)
Rx Instructions:
use on chemo days
prochlorperazine maleate 10 mg Tablet
10 mg PO BIDPRN PRN (Reason: nausea)
insulin glargine [Lantus Solostar U-100 Insulin] 100 unit/mL (3 mL) Insulin Pen
30 unit SC BID Qty: 5 0RF
Rx Instructions:
30 units twice daily
acetaminophen 500 mg Tablet
1,000 mg PO Q6HPRN PRN (Reason: MILD PAIN)
ibuprofen 200 mg Tablet
200 mg PO Q6HPRN PRN (Reason: MILD PAIN)
insulin lispro 100 unit/mL Insulin Pen
10 unit SC PC
Changed
magnesium oxide 400 mg magnesium Tablet
400 mg PO BID Qty: 0 0RF
Discharge Orders:
Discharge Patient (As Directed); Ordered 12/29/24
Ordered By: Dean Srivastava
Discharge Date and Time
Discharge Date/Time: 12/29/24 12:10
Print Language: MONGOLIAN
== END 2024-12-29 12:10 | disposition home or self-care (01) | DRG 683 ==
LOC: 3 WEST ACU 21:35
PROVIDERS: Physician Assistant; Physician Assistant Medical; ADMITTING PHYSICIAN Hospitalist; ATTENDING PHYSICIAN Internal Medicine; EMERGENCY PHYSICIAN Emergency Medicine; FAMILY PHYSICIAN Family Medicine; OTHER PHYSICIAN Internal Medicine; REFERRING PHYSICIAN Internal Medicine
DX: N17.9 Acute kidney failure, unspecified (principal); C78.01 Secondary malignant neoplasm of right lung; E87.1 Hypo-osmolality and hyponatremia; E83.42 Hypomagnesemia; C50.919 Malignant neoplasm of unspecified site of unspecified female breast; E11.9 Type 2 diabetes mellitus without complications; I10 Essential (primary) hypertension; D72.828 Other elevated white blood cell count; M06.9 Rheumatoid arthritis, unspecified; M32.9 Systemic lupus erythematosus, unspecified; F17.210 Nicotine dependence, cigarettes, uncomplicated; K21.9 Gastro-esophageal reflux disease without esophagitis; D64.81 Anemia due to antineoplastic chemotherapy; D63.0 Anemia in neoplastic disease; I51.3 Intracardiac thrombosis, not elsewhere classified; T45.8X5A Adverse effect of other primarily systemic and hematological agents, initial encounter; E78.00 Pure hypercholesterolemia, unspecified; E86.0 Dehydration; Z79.01 Long term (current) use of anticoagulants; Z79.4 Long term (current) use of insulin; Z79.84 Long term (current) use of oral hypoglycemic drugs; Z98.1 Arthrodesis status; Z90.711 Acquired absence of uterus with remaining cervical stump; Z90.11 Acquired absence of right breast and nipple; Z88.8 Allergy status to other drugs, medicaments and biological substances; Z88.5 Allergy status to narcotic agent; Z86.711 Personal history of pulmonary embolism; Z79.899 Other long term (current) drug therapy
CPT/HCPCS: 71046; 80048; 80053; 82962; 83036; 83735; 84484; 85025; 85027; 93005; 96361; 96365; 96366; 97162; 99285; 99406

== ENCOUNTER → 2025-01-24 15:51 | Outpatient (REF) | payer MEDICARE, SELFPAY | LOC: OIDL 15:51 | PROVIDERS: ATTENDING PHYSICIAN Nurse Practitioner Primary Care | DX: C50.511 Malignant neoplasm of lower-outer quadrant of right female breast (principal) | CPT/HCPCS: 83735 ==

== ENCOUNTER → 2025-02-14 11:33 | Outpatient (REF) | payer MEDICARE, SELFPAY ==
[2025-02-14 11:44] LABS: % Basophils 0.1 % (0-2); % Eosinophils 0.3 % (0-6); % Immature Granulocytes 2.5 % (0-0.5); % Monocytes 3.1 % (1.7-9.3); Absolute Basophils 0.1 10^3/uL (0-0.2); Absolute Eosinophils 0.1 10^3/uL (0-0.7); Absolute Immature Granulocytes 1.2 10^3/uL (0-0.05); Absolute Monocytes 1.5 10^3/uL (0.1-0.6); Absolute Neutrophils 45.4 10^3/uL (1.4-6.5); Hematocrit 29.7 % (37.0-47.0); Hemoglobin 10.1 g/dL (12.0-16.0); Mean Corpuscular Hgb 35.9 pg (27.0-31.0); Mean Corpuscular Volume 105.7 fL (81.0-99.0); Mean Platelet Volume 10.1 fL (7.4-10.4); Platelet Count 220 10^3/uL (130-400); Red Blood Cell Count 2.81 10^6/uL (4.20-5.40); Red Cell Dist. Width 16.4 % (11.5-14.5)
[2025-02-14 11:48] LABS: White Blood Cell Count 49.4 10^3/uL (4.8-10.8)
[2025-02-14 12:25] LABS: ALT (SGPT) 15 U/L (0-35); AST (SGOT) 15 U/L (14-36); Albumin 3.9 g/dl (3.5-5.0); Alkaline Phosphatase 188 U/L (38-126); Blood Urea Nitrogen 18 mg/dl (7-17); Carbon Dioxide 24 mmol/L (22-30); Chloride 101 mmol/L (98-107); Glucose 340 mg/dl (70-99); Magnesium 1.2 mg/dl (1.6-2.3); Potassium 3.7 mmol/L (3.5-5.1); Sodium 138 mmol/L (135-145); Total Bilirubin 0.4 mg/dl (0.2-1.3); Total Protein 5.9 g/dl (6.3-8.2); eGFR > 60.00
== END ==
LOC: OIDL 11:33
PROVIDERS: ATTENDING PHYSICIAN Nurse Practitioner Adult Health
DX: C50.511 Malignant neoplasm of lower-outer quadrant of right female breast (principal); C50.411 Malignant neoplasm of upper-outer quadrant of right female breast; C78.00 Secondary malignant neoplasm of unspecified lung
CPT/HCPCS: 80053; 83735; 85025; 86300

== ENCOUNTER 2025-03-18 12:19 | Emergency (ER) | payer MEDICARE, SELFPAY ==
[2025-03-18 12:23] VITALS: BP 109/77
[2025-03-18 13:49] LABS: Hematocrit 32.7 % (37.0-47.0); Hemoglobin 11.2 g/dL (12.0-16.0); Mean Corp Hgb Conc. 34.3 g/dL (33.0-37.0); Mean Corpuscular Hgb 35.8 pg (27.0-31.0); Mean Corpuscular Volume 104.5 fL (81.0-99.0); Mean Platelet Volume 9.3 fL (7.4-10.4); Platelet Count 350 10^3/uL (130-400); Red Blood Cell Count 3.13 10^6/uL (4.20-5.40); Red Cell Dist. Width 15.2 % (11.5-14.5); White Blood Cell Count 44.2 10^3/uL (4.8-10.8)
[2025-03-18 13:54] VITALS: BP 125/72
[2025-03-18 13:57] LABS: ALT (SGPT) 13 U/L (0-35); AST (SGOT) 14 U/L (14-36); Albumin 4.3 g/dl (3.5-5.0); Alkaline Phosphatase 97 U/L (38-126); Blood Urea Nitrogen 17 mg/dl (7-17); Calcium 9.7 mg/dl (8.4-10.2); Carbon Dioxide 19 mmol/L (22-30); Chloride 106 mmol/L (98-107); Glucose 217 mg/dl (70-99); Magnesium 1.1 mg/dl (1.6-2.3); Potassium 4.6 mmol/L (3.5-5.1); Sodium 135 mmol/L (135-145); Total Bilirubin 0.5 mg/dl (0.2-1.3); Total Protein 6.6 g/dl (6.3-8.2); eGFR > 60.00
[2025-03-18 14:00] VITALS: BP 108/61
[2025-03-18 14:07] LABS: Troponin I < 0.012 ng/ml
[2025-03-18] MEDS: MAGNESIUM SULFATE 50 IV (14:15)
[2025-03-18 15:00] VITALS: BP 114/56
--- NOTE | 2025-03-18 15:11 | ED.GENMED ---
History of Present Illness
General
Chief Complaint: Chest Pain
Time Seen by Provider: 03/18/25 13:58
History of Present Illness
History of Present Illness:
64-year-old female with history of metastatic breast cancer currently on chemotherapy presents to the emergency department for evaluation of diffuse muscle cramps, this has been the case in the past as her magnesium levels have dropped. She was
previously on a PPI but this was discontinued at her last hospitalization. Additionally she is on a oral magnesium oxide supplement that she takes once daily and has been compliant with this. She denies any shortness of breath or chest pain at
present.
Past History
Past History
ED Past Medical History: Cancer, Hypercholesterolemia, IDDM and Other
ED Past Surgical History: Gynecological (Partial hysterectomy) and Orthopedic (Cervical spine fusion ); Negative Cardiac
Social History
Tobacco: Smoker
Alcohol: Occasional
Drug: None
Personal:
Living: with family
Employment: Employed
Family History
Family History: Hypertension
Review of Systems
Review of Systems
Allergies reviewed?: Yes
All Other Systems: ROS reviewed and negative except as documented in HPI and ROS
Phy Exam
Physical Exam
Physical Exam:
GEN: Well appearing, NAD, WDWN
HEENT: Oral mucosa moist, no scleral icterus
Cardiac: Regular rate and rhythm, no murmurs
Chest: Port in the right chest wall
Lung: No respiratory distress, no tachypnea
MSK: No gross deformity or injuries
Skin: Good color, no pallor or jaundice, no rashes
Neuro: AO x3, moves all extremities freely
Psych: Calm, cooperative
Scores
Heart Score for Chest Pain Patients
STEMI patient?: Not applicable
Course
Orders/Labs/Results
Orders:
Orders
03/18/25 12:19
Electrocardiogram (*1) Urgent
Reason for Study: Chest Pain
03/18/25 12:20
EKG- Treatment ONCE
03/18/25 13:22
Complete Blood Count/With Diff Urgent
Comprehensive Metabolic Panel Urgent
Magnesium Urgent
Troponin I Urgent
03/18/25 14:06
Magnesium Sulfate 2 Gram/50 ml [Magnesium Sulfate] 2 gram in 50 ml IV NOW
Abnormal Lab Results
03/18/25
13:22
WBC 44.2 H* 10^3/uL
(4.8-10.8)
RBC 3.13 L 10^6/uL
(4.20-5.40)
Hgb 11.2 L g/dL
(12.0-16.0)
Hct 32.7 L %
(37.0-47.0)
MCV 104.5 H fL
(81.0-99.0)
MCH 35.8 H pg
(27.0-31.0)
RDW 15.2 H %
(11.5-14.5)
Abs Immat Gran (auto) 0.8 H 10^3/uL
(0-0.05)
Absolute Neuts (auto) 40.5 H 10^3/uL
(1.4-6.5)
Absolute Monos (auto) 1.1 H 10^3/uL
(0.1-0.6)
Immature Gran % 1.8 H %
(0-0.5)
Neutrophils % 91.7 H %
(42.2-75.2)
Lymphocytes % 3.4 L %
(20.5-51.1)
Carbon Dioxide 19 L mmol/L
(22-30)
Glucose 217 H mg/dl
(70-99)
Magnesium 1.1 L mg/dl
(1.6-2.3)
03/18/25 13:22
03/18/25 13:22
Vital Signs
Initial and Last Documented VS:
Initial Vital Signs
Temp Pulse Resp BP Pulse Ox
97.9 F 102 16 109/77 99
03/18/25 12:23 03/18/25 12:23 03/18/25 12:23 03/18/25 12:23 03/18/25 12:23
Last Documented Vital Signs
Temp Pulse Resp BP Pulse Ox
97.9 F 85 18 108/61 96
03/18/25 12:23 03/18/25 14:45 03/18/25 14:45 03/18/25 14:00 03/18/25 14:45
MDM/Problems Addressed
MDM/Problems Addressed:
Patient's labs confirm hypomagnesemia. I suspect her recurrent hypomagnesemia is secondary to poor oral bioavailability of magnesium oxide thus we will recommend she switch to magnesium glycinate for better absorption, given IV repletion in the ED
and will recommend outpatient follow-up with her primary cancer team or primary care physician to discuss repeat magnesium level as an outpatient
*Critical Care Note
Total Time (30-74mins, 75-104mins- exclusive of procedures): Not Applicable
ED Attending Note
-
Portions of this chart may have been created with voice recognition software.� Occasional wrong word or��sound alike� substitutions may have occurred due to the inherent limitations of voice recognition software.
Discharge Plan
Departure
Patient Disposition: Home (Routine Discharge)
Date of Disposition: 03/18/25
Time of Disposition: 15:46
Patient with high blood pressure during this ER visit?: No
Discharge Problem:
Hypomagnesemia
Instructions: Hypomagnesemia
Prescriptions:
New
Mag Glycinate 100 mg tablet
200 mg PO DAILY Qty: 60 0RF
Discontinued
magnesium oxide 400 mg magnesium tablet
400 mg PO DAILY
No Action
methotrexate sodium 2.5 MG tablet
10 mg PO TUWE
metformin 1,000 MG tablet
1,000 mg PO BID
folic acid 1 MG tablet
1 mg PO DAILY
hydroxychloroquine 200 mg Tablet
400 mg PO DAILY
pantoprazole 40 mg Tablet,Delayed Release (Dr/Ec)
40 mg PO DAILY
pregabalin 100 mg Capsule
100 mg PO TID
ezetimibe 10 mg Tablet
10 mg PO DAILY
Eliquis 5 mg Tablet
5 mg PO BID
lidocaine-prilocaine 2.5-2.5 % Cream
1 applic TOPICAL DAILYPRN PRN (Reason: port access)
prochlorperazine maleate 10 mg Tablet
10 mg PO BIDPRN PRN (Reason: nausea)
insulin lispro [Humalog KwikPen Insulin] 100 unit/mL Insulin Pen
1 sliding scale dose SC AC
Trodelvy 180 mg Recon Soln
180 mg IV Q2W
infliximab [Remicade] 100 mg Recon Soln
100 mg IV MONTHLY
acetaminophen 500 mg Tablet
1,000 mg PO Q6HPRN PRN (Reason: MILD PAIN)
ondansetron [Zofran ODT] 8 mg Tablet,Disintegrating
8 mg PO [id number] PRN (Reason: nausea)
insulin glargine [Lantus Solostar U-100 Insulin] 100 unit/mL (3 mL) insulin pen
30 unit SC HS
Referrals:
Abraham Ackerman MD [Family Provider] -
Activity Restrictions/Additional Instructions:
Stop taking the magnesium oxide.
Switch to magnesium glycinate. If the prescription is not provided by your pharmacy, it can be purchased over the counter at any retail pharmacy. Magnesium glycinate should be taken as 240mg daily for supplementation
Interventions
Interventions:
*Risk Screen - Suicide Last Done: 03/18/25 12:23
*General Assessment Last Done: 03/18/25 12:23
*Neglect/Abuse Screening Last Done: 03/18/25 12:23
Discharge Date and Time
Print Language: SAO TOMEAN
[2025-03-18 15:30] LABS: % Basophils 0.4 % (0-2); % Eosinophils 0.2 % (0-6); % Immature Granulocytes 1.8 % (0-0.5); % Lymphocytes 3.4 % (20.5-51.1); % Monocytes 2.5 % (1.7-9.3); % Neutrophils 91.7 % (42.2-75.2); Absolute Basophils 0.2 10^3/uL (0-0.2); Absolute Eosinophils 0.1 10^3/uL (0-0.7); Absolute Immature Granulocytes 0.8 10^3/uL (0-0.05); Absolute Lymphocytes 1.5 10^3/uL (1.2-3.4); Absolute Monocytes 1.1 10^3/uL (0.1-0.6); Absolute Neutrophils 40.5 10^3/uL (1.4-6.5); Nucleated Red Blood Cells % 0 %
--- NOTE | 2025-03-18 16:22 | VATNOTE ---
right subq port deaccessed per protcol; brisk blood return noted prior to.
== END 2025-03-18 16:43 | disposition home or self-care (01) ==
LOC: EMR 12:19
PROVIDERS: Emergency Medicine; EMERGENCY PHYSICIAN Emergency Medicine; FAMILY PHYSICIAN Family Medicine
DX: E83.42 Hypomagnesemia (principal); E78.00 Pure hypercholesterolemia, unspecified; E11.9 Type 2 diabetes mellitus without complications; F17.200 Nicotine dependence, unspecified, uncomplicated; Z82.49 Family history of ischemic heart disease and other diseases of the circulatory system; Z85.3 Personal history of malignant neoplasm of breast; Z98.1 Arthrodesis status
CPT/HCPCS: 99283; 96365; 96366; 96375; 80053; 83735; 84484; 85025; 93005

== ENCOUNTER 2025-03-20 06:48 | Day surgery (SDC) | payer MEDICARE, SELFPAY ==
[2025-03-05 14:10] VITALS: BMI 24.3
== END 2025-03-20 09:41 | disposition home or self-care (01) ==
LOC: CATH 06:48
PROVIDERS: ATTENDING PHYSICIAN Internal Medicine; FAMILY PHYSICIAN Family Medicine
DX: I51.89 Other ill-defined heart diseases (principal); I10 Essential (primary) hypertension; E78.5 Hyperlipidemia, unspecified; E11.9 Type 2 diabetes mellitus without complications; K21.9 Gastro-esophageal reflux disease without esophagitis; K76.0 Fatty (change of) liver, not elsewhere classified; M32.9 Systemic lupus erythematosus, unspecified; M06.9 Rheumatoid arthritis, unspecified; Z85.3 Personal history of malignant neoplasm of breast; F17.210 Nicotine dependence, cigarettes, uncomplicated; Z79.01 Long term (current) use of anticoagulants; Z79.4 Long term (current) use of insulin; Z79.84 Long term (current) use of oral hypoglycemic drugs
CPT/HCPCS: 93312; 93320; 93325; 93005

== ENCOUNTER 2025-08-04 17:37 | Emergency (ER) | payer MEDICARE, SELFPAY ==
[2025-08-04 17:45] VITALS: BP 116/70
[2025-08-04 18:09] LABS: Hematocrit 36.0 % (37.0-47.0); Hemoglobin 11.6 g/dL (12.0-16.0); Mean Corp Hgb Conc. 32.2 g/dL (33.0-37.0); Mean Corpuscular Volume 103.2 fL (81.0-99.0); Nucleated Red Blood Cells % 0 %; Platelet Count 165 10^3/uL (130-400); Red Cell Dist. Width 14.9 % (11.5-14.5)
[2025-08-04 18:29] LABS: ALT (SGPT) 34 U/L (0-35); AST (SGOT) 31 U/L (14-36); Albumin 4.2 g/dl (3.5-5.0); Alkaline Phosphatase 79 U/L (38-126); Blood Urea Nitrogen 26 mg/dl (7-17); Calcium 9.9 mg/dl (8.4-10.2); Carbon Dioxide 24 mmol/L (22-30); Chloride 106 mmol/L (98-107); Glucose 128 mg/dl (70-99); Potassium 4.6 mmol/L (3.5-5.1); Sodium 137 mmol/L (135-145); Total Protein 7.1 g/dl (6.3-8.2); eGFR > 60.00
[2025-08-04 19:26] VITALS: BMI 21.5
[2025-08-04 19:31] VITALS: BP 126/72
[2025-08-04 20:00] VITALS: BP 125/65
--- NOTE | 2025-08-04 20:11 | ED.GENMED ---
History of Present Illness
General
Chief Complaint: Musculo-Skeletal Complaint
Source: patient
Exam Limitations: none
Time Seen by Provider: 08/04/25 20:00
Nursing documentation reviewed up to this point in time: agreed with
History of Present Illness
History of Present Illness:
64-year-old female with extensive medical history notable for metastatic breast cancer (follows with Dr. Dyer for oncology care) who presents to the emergency department for evaluation of chest pain/rib pain also small bump in her upper abdomen
after being stepped on by her dogs. Patient says about 4 or 5 days ago she was laying down and her large dogs stepped on/jumped on her chest. She says that she has had some soreness in the right side of her chest since near the area of the hit.
She also says that she noted a small bump in her upper abdomen that is sore to the touch�she is not sure whether this is related to the trauma or not. She saw her primary doctor who referred her to the ER to be evaluated. Per call in note from her
primary doctor: there was concern for diminished breath sounds on the right and was sent in for imaging. It sounds like there have been recent discussions about hospice due to her metastatic cancer. Patient is on Eliquis.
Past History
Past History
ED Past Medical History: Cancer, Hypercholesterolemia, IDDM and Other
ED Past Surgical History: Gynecological (Partial hysterectomy) and Orthopedic (Cervical spine fusion ); Negative Cardiac
Social History
Tobacco: Smoker
Alcohol: Occasional
Drug: None
Personal:
Living: with family
Employment: Employed
Family History
Family History: Hypertension
Review of Systems
Review of Systems
All Other Systems: ROS reviewed and negative except as documented in HPI and ROS
Constitutional: Denies fever
Respiratory: Reports trouble breathing
Cardiac: Reports chest pain (Rib pain); Denies palpitations
ABD/GI: Reports other (Small bump in the upper abdomen); Denies abdominal pain, nausea or vomiting
: Denies flank pain
Musculoskeletal: Denies neck pain or back pain
Neurological: Denies dizzy or headache
Phy Exam
Physical Exam
Physical Exam:
General: Awake, alert, chronically ill-appearing but not in acute distress
Head: Normocephalic, atraumatic
Eyes: Conjunctiva normal
Throat: Airway intact, handling secretions
Neck: Trachea midline, supple without meningismus
Lungs: Breath sounds somewhat diminished at the lung bases bilaterally; no tachypnea or hypoxia
Heart: Regular rate and rhythm, no murmurs, gallops, or rubs; right mastectomy scar noted with some localized tenderness and bruising in the area of the scar anterior axillary line right mid ribs; no crepitus noted
Abd: Soft, non distended, nontender; there is a small approximately pea-sized mass in the epigastrium which appears generally well-circumscribed and is mildly tender to the touch�no bruising noted
Neuro: Grossly intact
Extremities: Atraumatic, warm well-perfused
Scores
Heart Failure Risk
Heart Failure Risk Score: Not Applicable
Heart Score for Chest Pain Patients
STEMI patient?: Not applicable
Withdrawal Assessment of Alcohol
Withdrawal Assessment Completed?: Not applicable
Course
Orders/Labs/Results
Orders:
Orders
08/04/25 17:50
Electrocardiogram (*1) Urgent
Reason for Study: Vertigo / Dizzy
08/04/25 17:51
EKG- Treatment ONCE
08/04/25 18:00
Type And Crossmatch [Type+Screen] Urgent
CMP [Comprehensive Metabolic Panel] Urgent
Complete Blood Count/With Diff Urgent
08/04/25 20:08
US Abdomen Limited Urgent
Comment:
Reason For Exam: small lump in upper abd
08/04/25 20:09
CR Ribs-right 3 Vw W/pa Chest* Urgent
Comment:
Reason For Exam: right rib pain s/p hit by dog
Abnormal Lab Results
08/04/25
18:00
RBC 3.49 L 10^6/uL
(4.20-5.40)
Hgb 11.6 L g/dL
(12.0-16.0)
Hct 36.0 L %
(37.0-47.0)
MCV 103.2 H fL
(81.0-99.0)
MCH 33.2 H pg
(27.0-31.0)
MCHC 32.2 L g/dL
(33.0-37.0)
RDW 14.9 H %
(11.5-14.5)
Absolute Neuts (auto) 6.6 H 10^3/uL
(1.4-6.5)
Neutrophils % 76.7 H %
(42.2-75.2)
Lymphocytes % 17.0 L %
(20.5-51.1)
BUN 26 H mg/dl
(7-17)
Glucose 128 H mg/dl
(70-99)
08/04/25 18:00
08/04/25 18:00
Vital Signs
Initial and Last Documented VS:
Initial Vital Signs
Temp Pulse Resp BP Pulse Ox
36.4 C 96 18 116/70 99
08/04/25 17:45 08/04/25 17:45 08/04/25 17:45 08/04/25 17:45 08/04/25 17:45
Last Documented Vital Signs
Temp Pulse Resp BP Pulse Ox
36.4 C 93 18 121/64 96
08/04/25 17:45 08/04/25 21:30 08/04/25 21:36 08/04/25 21:00 08/04/25 21:30
MDM/Problems Addressed
Differential Diagnosis Includes:
Rib pain: Bruised ribs, rib fracture, pneumothorax, hemothorax
Bump in upper abdomen: Enlarged lymph node, small hernia, cyst, lipoma, calcified fat
MDM/Problems Addressed:
64-year-old female presents to the ER for evaluation after minor trauma last week. Has been having some soreness in her ribs, today had some diminished breath sounds in the office. She also has a small bump on her upper abdomen that she is
concerned about. Vital signs are normal. Exam as above. She had labs in triage which showed some mild anemia which is stable. Will plan to check chest/rib x-ray. Can ultrasound small bump in the upper abdomen. Reassess after the above.
X-ray of the ribs/chest reviewed by me shows no acute abnormality, no rib fracture. Ultrasound of the small palpable area of concern shows what looks like a small metastatic deposit. Suspect likely bruised ribs. Will plan to discharge home,
patient feels pain poorly controlled with Tylenol, cannot take NSAIDs due to Eliquis use. Will plan to start low-dose oxycodone for short course to help with pain. Follow-up with her primary doctor as an outpatient. Patient and
comfortable with this plan. All questions answered.
Chronic conditions affecting care:
Metastatic cancer
*Radiology
Radiology exam reviewed: preliminary read by ED provider and radiology read reviewed
*Pulse Oximetry
SaO2: 96
Oxygen Mode of Delivery: Room air
Patient hypoxic: no (96%)
*EKG
Interpreted by ED Provider?: Yes
Heart Rate: 83
Rate: normal
Rhythm: sinus
Donahue: normal axis
Interval: normal interval
QRS Pattern: normal QRS
Ischemia: no ischemia
*Critical Care Note
Total Time (30-74mins, 75-104mins- exclusive of procedures): Not Applicable
Data Reviewed
Review of Other/Old Records Reveals: Labs and Records
Source: patient, records and physician
Patient Management
Discussion with other providers: PCP (Primary physician who called patient into the ED)
ED Attending Note
-
Portions of this chart may have been created with voice recognition software.� Occasional wrong word or��sound alike� substitutions may have occurred due to the inherent limitations of voice recognition software.
Discharge Plan
Departure
Patient Disposition: Home (Routine Discharge)
Date of Disposition: 08/04/25
Time of Disposition: 21:38
Patient with high blood pressure during this ER visit?: No
Discharge Problem:
Bruised ribs, Metastatic cancer
Instructions: Rib fracture or bruised rib - ED (DC)
Prescriptions:
New
oxycodone 5 mg tablet
5 mg PO TID PRN (Reason: Pain) Qty: 10 0RF
No Action
methotrexate sodium 2.5 MG tablet
10 mg PO TUWE
metformin 1,000 MG tablet
1,000 mg PO BID
folic acid 1 MG tablet
1 mg PO DAILY
hydroxychloroquine 200 mg Tablet
400 mg PO DAILY
pantoprazole 40 mg Tablet,Delayed Release (Dr/Ec)
40 mg PO DAILY
pregabalin 100 mg Capsule
100 mg PO TID
ezetimibe 10 mg Tablet
10 mg PO DAILY
Eliquis 5 mg Tablet
5 mg PO BID
lidocaine-prilocaine 2.5-2.5 % Cream
1 applic TOPICAL DAILYPRN PRN (Reason: port access)
prochlorperazine maleate 10 mg Tablet
10 mg PO BIDPRN PRN (Reason: nausea)
insulin lispro [Humalog KwikPen Insulin] 100 unit/mL Insulin Pen
1 sliding scale dose SC AC
Trodelvy 180 mg Recon Soln
180 mg IV Q2W
infliximab [Remicade] 100 mg Recon Soln
100 mg IV MONTHLY
acetaminophen 500 mg Tablet
1,000 mg PO Q6HPRN PRN (Reason: MILD PAIN)
ondansetron [Zofran ODT] 8 mg Tablet,Disintegrating
8 mg PO [id number] PRN (Reason: nausea)
insulin glargine [Lantus Solostar U-100 Insulin] 100 unit/mL (3 mL) insulin pen
30 unit SC HS
Mag Glycinate 100 mg tablet
200 mg PO DAILY Qty: 60 0RF
Referrals:
Abraham Ackerman MD [Family Provider, Family Practice] - Follow up in 5-7 days
Arnel Dyer MD [Active, Hematology / Oncology] - Call in 1-3 days for appt
Activity Restrictions/Additional Instructions:
You should follow-up with your primary doctor as well as your oncologist after your visit to the ER as we discussed.
Thank you for visiting the Emergency Department at [facility].
1. Please schedule a follow up appointment as directed. Call first thing tomorrow morning to make an appointment.
2. If indicated, please take your medications as instructed and indicated on discharge paperwork.
3. If any of your symptoms do not improve, or persist, or become more severe within 6-12 hours, please return to the emergency department for further care.
4. Please return to the emergency department if you develop a headache, neck pain/stiffness, fever greater than 100.4F, chest pain, shortness of breath, persistent nausea, vomiting, slurred speech, difficulty walking, numbness/tingling, weakness,
signs of infection or any other symptoms that are worrisome to you.
Please call [phone] if you have any questions.
Interventions
Interventions:
*Risk Screen - Suicide Last Done: 08/04/25 19:26
*General Assessment Last Done: 08/04/25 19:26
*Neglect/Abuse Screening Last Done: 08/04/25 19:26
*ED- Fall Risk Assessment Last Done: 08/04/25 19:26
*ED COVID-19 Vaccine History Last Done: 08/04/25 19:26
*ED Influenza Vaccine History Last Done: 08/04/25 19:26
ED-Musculoskeletal Assessment Last Done: 08/04/25 19:36
Discharge Date and Time
Print Language: URDU
[2025-08-04 20:51] VITALS: BP 128/67
[2025-08-04 21:00] VITALS: BP 121/64
[2025-08-04] MEDS: ROXICODONE 5 MG PO (21:50)
== END 2025-08-04 21:50 | disposition home or self-care (01) ==
LOC: EMR 17:37
PROVIDERS: Emergency Medicine; EMERGENCY PHYSICIAN Emergency Medicine; FAMILY PHYSICIAN Family Medicine
DX: S20.211A Contusion of right front wall of thorax, initial encounter (principal); X58.XXXA Exposure to other specified factors, initial encounter; C50.919 Malignant neoplasm of unspecified site of unspecified female breast; C79.51 Secondary malignant neoplasm of bone; E11.9 Type 2 diabetes mellitus without complications; E78.00 Pure hypercholesterolemia, unspecified; Z79.01 Long term (current) use of anticoagulants; Z90.711 Acquired absence of uterus with remaining cervical stump; Z98.1 Arthrodesis status; F17.200 Nicotine dependence, unspecified, uncomplicated
CPT/HCPCS: 99284; 71101; 76705; 80053; 85025; 86850; 86900; 86901; 93005